=== PATIENT | female | born 1985 | race African-American/Black ===

== ENCOUNTER 2023-03-24 20:32 | Emergency (ER) | payer SELFPAY ==
[2023-03-24 20:34] VITALS: BP 160/108
[2023-03-24 21:22] VITALS: BMI 40.9
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
[2023-03-24] MEDS: TYLENOL 1000 MG PO (23:02)
[2023-03-24 23:20] VITALS: BP 136/96
== END 2023-03-24 23:29 | disposition home or self-care (01) ==
LOC: EMR 20:32
PROVIDERS: EMERGENCY PHYSICIAN Emergency Medicine; FAMILY PHYSICIAN Nurse Practitioner Family
DX: M54.50 Low back pain, unspecified (principal); V43.52XA Car driver injured in collision with other type car in traffic accident, initial encounter; I10 Essential (primary) hypertension; O26.899 Other specified pregnancy related conditions, unspecified trimester; Z3A.00 Weeks of gestation of pregnancy not specified
CPT/HCPCS: 99282

== ENCOUNTER → 2023-08-20 11:08 | Outpatient (REF) | payer OTHER, SELFPAY ==
[2023-08-20 15:51] LABS: Mumps Virus IgG Positive; Rubeola (Measles) IgG Positive; Varicella Zoster IgG (VZV) Positive
[2023-08-20 19:10] LABS: Hepatitis B Surface Antibody Positive
[2023-08-20 20:23] LABS: Rubella Positive
[2023-08-22 19:40] LABS: Quantiferon Mitogen minus NIL 9.97 IU/mL; Quantiferon NIL 0.03 IU/mL; Quantiferon Plus TB2 minus NIL -0.01 IU/mL (<=0.34); Quantiferon TB Gold Plus Negative (Negative)
== END ==
LOC: OHS 11:08
PROVIDERS: ATTENDING PHYSICIAN Nurse Practitioner Family
DX: Z23 Encounter for immunization (principal)
CPT/HCPCS: 36415; 86480; 86706; 86735; 86762; 86765; 86787

== ENCOUNTER 2023-10-19 02:27 | Emergency (ER) | payer OTHER, SELFPAY ==
[2023-10-19 02:48] VITALS: BMI 40.0
[2023-10-19 02:49] VITALS: BP 131/82
[2023-10-19] MEDS: ADENOCARD 6 MG IV (02:52)
[2023-10-19] MEDS: NSS 1000 IV (02:53)
[2023-10-19 02:55] LABS: % Basophils 0.5 % (0-2); % Immature Granulocytes 0.5 % (0-0.5); % Lymphocytes 43.7 % (20.5-51.1); % Neutrophils 48.3 % (42.2-75.2); Absolute Basophils 0.1 10^3/uL (0-0.2); Absolute Eosinophils 0.2 10^3/uL (0-0.7); Absolute Immature Granulocytes 0.1 10^3/uL (0-0.05); Absolute Lymphocytes 4.4 10^3/uL (1.2-3.4); Absolute Monocytes 0.5 10^3/uL (0.1-0.6); Absolute Neutrophils 4.9 10^3/uL (1.4-6.5); Hematocrit 34.1 % (37.0-47.0); Mean Corp Hgb Conc. 35.2 g/dL (33.0-37.0); Mean Corpuscular Hgb 28.6 pg (27.0-31.0); Mean Corpuscular Volume 81.2 fL (81.0-99.0); Mean Platelet Volume 9.3 fL (7.4-10.4); Nucleated Red Blood Cells % 0 %; Platelet Count 248 10^3/uL (130-400); Red Cell Dist. Width 13.2 % (11.5-14.5); White Blood Cell Count 10.2 10^3/uL (4.8-10.8)
[2023-10-19 03:07] LABS: ALT (SGPT) 17 U/L (0-35); AST (SGOT) 23 U/L (14-36); Albumin 3.7 g/dl (3.5-5.0); Alkaline Phosphatase 102 U/L (38-126); Blood Urea Nitrogen 8 mg/dl (7-17); Calcium 9.1 mg/dl (8.4-10.2); Carbon Dioxide 19 mmol/L (22-30); Chloride 106 mmol/L (98-107); Estimated Creatinine Clearance > 125 ml/min; Glucose 177 mg/dl (70-99); Potassium 3.5 mmol/L (3.5-5.1); Sodium 139 mmol/L (135-145); Total Bilirubin 0.4 mg/dl (0.2-1.3); Total Protein 6.6 g/dl (6.3-8.2); eGFR > 60.00
[2023-10-19 03:15] VITALS: BP 138/98
[2023-10-19 03:37] LABS: TSH Reflex To Free T4 0.37 uIU/ml (0.47-4.68)
[2023-10-19 04:00] VITALS: BP 126/89
--- NOTE | 2023-10-19 04:04 | ED.GENMED ---
History of Present Illness
General
Chief Complaint: Heart Rate Problem
Source: patient
Exam Limitations: none
Time Seen by Provider: 10/19/23 02:45
Nursing documentation reviewed up to this point in time: agreed with
History of Present Illness
History of Present Illness:
This is a 38-year-old female 8 para 3-0-4-3 currently 14 weeks with EDC of April 12, 2024. She presents with her after waking around 1:15 AM with a sensation that her heart was pounding and beating rapidly. She admits
to feeling slightly lightheaded but no chest pain, no shortness of breath. No history of similar episodes in the past.
Current medications include vitamins, vitamin D and low-dose aspirin, methimazole 5 mg once daily.
She has prior history of hypertension as well as prior history of peripartum cardiomyopathy, had been following with associate store leader at [place] with reported previous echocardiogram showing normalization of EF. She states last echocardiogram in last
visit with associate store leader was perhaps 1 year ago.
No prior history of arrhythmia nor coronary artery disease.
She has history of hyperthyroidism, has been maintained on methimazole 5 mg once daily for at least the past year. Follows with endocrinology.
She states thus far has been uneventful. She follows with artificial plastic eye maker at [place].
Past History
Past History
ED Past Medical History: HTN, Hyperthyroidism (Maintained on methimazole 5 mg once daily.), Other (Peripartum cardiomyopathy, CHF, EF has since normalized 2021. Follows with cardiology at [place].) and Other (Seasonal allergies)
ED Past Surgical History: (X 1)
Social History
Tobacco: Non-smoker
Alcohol: Occasional
Drug: None
Personal:
Living: with family
Employment: Employed
Family History
Family History: Other (Noncontributory)
Phy Exam
Physical Exam
Physical Exam:
GENERAL: 38-year-old woman appears her stated age, awake and alert, mildly anxious, easily communicative. No respiratory distress.
EYE: pupils equal and reactive. anicteric
NECK: Supple, nontender, no meningismus, no significant adenopathy. No JVD.
ENT: posterior pharynx is clear, oral mucosa is moist. No rhinorrhea.
CARDIAC: Tachycardic at 200, no murmur.
LUNGS: Clear breath sounds bilaterally, no acute respiratory distress, no wheezes/rales/rhonchi
ABDOMEN: Soft, nondistended, without focal tenderness, normoactive BS.
NEUROLOGICAL: Alert and oriented x3, no focal neuro deficits.
SKIN: Warm and dry, normal color, skin intact. No rash.
MUSCULOSKELETAL: No C/C/E. peripheral pulses are full and equal b/l. Well-perfused. No palpable tenderness.
PSYCH: Mildly anxious. Cooperative.
Course
Orders/Labs/Results
Orders:
Orders
10/19/23 02:32
ECG [Electrocardiogram (*1)] Urgent
Reason for Study: Tachycardia
10/19/23 02:33
EKG- Treatment ONCE
10/19/23 02:37
Adenosine [Adenocard] 18 mg .ROUTE .STK-MED ONE
10/19/23 02:44
Complete Blood Count/With Diff Urgent
Comprehensive Metabolic Panel Urgent
Free T4 Urgent
TSH Reflex To Free T4 Urgent
Comment: ADD ON
10/19/23 02:45
Add On- LAB Urgent
Tests Added?: TSH w free T-4
10/19/23 02:51
Adenosine [Adenocard] 6 mg IV NOW STA
10/19/23 02:53
0.9% Sodium Chloride 1000 ml [Nss] 1,000 ml IV BOLUS
Abnormal Lab Results
10/19/23
02:44
Hct 34.1 L %
(37.0-47.0)
Abs Immat Gran (auto) 0.1 H 10^3/uL
(0-0.05)
Absolute Lymphs (auto) 4.4 H 10^3/uL
(1.2-3.4)
Carbon Dioxide 19 L mmol/L
(22-30)
Glucose 177 H mg/dl
(70-99)
TSH (Reflex) 0.37 L uIU/ml
(0.47-4.68)
Free T4 0.56 L ng/dl
(0.78-2.19)
10/19/23 02:44
10/19/23 02:44
Vital Signs
Initial and Last Documented VS:
Initial Vital Signs
Temp Pulse Resp Pulse Ox
98 F 218 24 100
10/19/23 02:30 10/19/23 02:30 10/19/23 02:30 10/19/23 02:30
Last Documented Vital Signs
Temp Pulse Resp BP Pulse Ox
98 F 106 24 138/96 99
10/19/23 02:30 10/19/23 05:02 10/19/23 02:30 10/19/23 05:00 10/19/23 05:00
MDM/Problems Addressed
Differential Diagnosis Includes:
Patient presents with palpitations found to be in SVT with heart rate of 208. Hemodynamically stable.
IV access promptly initiated and she is given 6 mg of IV adenosine push with successful conversion to sinus tachycardia. Patient tolerated adenosine well.
She remains hemodynamically stable.
Repeat EKG shows sinus tachycardia at 130, no acute ST-T wave abnormalities.
Prior history of peripartum cardiomyopathy/CHF but nothing to suggest CHF on exam, lungs are clear to auscultation, without respiratory distress.
She has history of hyperthyroidism, maintained on methimazole 5 mg daily. Exacerbation of hyperthyroidism could certainly be cause for SVT.
She denies chest pain, no leg pain or swelling, no shortness of breath, thromboembolism as cause is unlikely.
Will check labs including TSH.
IV fluids infusing and will continue ekg monitor tech.
*Pulse Oximetry
Patient hypoxic: no
*EKG
Interpreted by ED Provider?: Yes
Interpretation: abnormal
Comparison EKG: changes noted (SVT is new compared to previous)
Rate: tachycardiac
Rhythm: SVT
[place]: normal axis
Interval: normal interval
QRS Pattern: normal QRS
Ischemia: non-specific ST changes
*Software Consultant Interpretation
Rate: tachycardiac
Interpretation: abnormal
Rhythm: SVT
*Critical Care Note
Total Time (30-74mins, 75-104mins- exclusive of procedures): 15
comment:
Critical care statement: A total of 15 minutes of critical care time was provided for this patient. This includes management of unstable vital signs, evaluation of the patient at bedside, reviewing the patient's pertinent medical records, discussion
with consultants, review of old EKGs and review of pertinent medical records. This time with separate from time utilized to perform the aforementioned documented procedures
Update Note
Update Note:
10/19/2023 0422 AM
Monitor shows mild sinus tachycardia at 100-110.
Patient remains comfortable, asymptomatic. Resting comfortably. She continues to deny chest pain or shortness of breath.
Normotensive.
Labs thus far are unremarkable save for mildly elevated glucose of 177 and mildly suppressed TSH of 0.37. Free T4 is pending.
10/19/2023 0510 AM
Patient remains comfortable. Normal sinus rhythm to mild sinus tachycardia. Offers no complaints.
Free T4 was mildly low at 0.56. Patient following with oil tanker captain regarding her hyperthyroidism. Recommend prompt follow-up with her associate store leader at [place] as well.
ED Attending Note
-
Portions of this chart may have been created with voice recognition software.� Occasional wrong word or��sound alike� substitutions may have occurred due to the inherent limitations of voice recognition software.
Discharge Plan
Departure
Patient Disposition: Home (Routine Discharge)
Date of Disposition: 10/19/23
Time of Disposition: 05:07
Patient with high blood pressure during this ER visit?: No
Condition: Good
Discharge Problem:
SVT (supraventricular tachycardia)
Instructions: Supraventricular tachycardia (SVT)
Referrals:
Demian Yang MD [Family Provider] -
Activity Restrictions/Additional Instructions:
Stay well-hydrated on a daily basis.
Follow-up with your associate store leader at [place] for further evaluation/recheck.
Interventions
Interventions:
*Risk Screen - Suicide Last Done: 10/19/23 02:47
*General Assessment Last Done: 10/19/23 02:47
*Neglect/Abuse Screening Last Done: 10/19/23 02:47
*ED COVID-19 Vaccine History Last Done: 10/19/23 02:47
ED- Cardiac Assessment Last Done: 10/19/23 02:40
ED- Pulmonary Assessment Last Done: 10/19/23 02:40
Discharge Date and Time
Print Language: [place]
[2023-10-19 04:51] LABS: Free T4 0.56 ng/dl (0.78-2.19)
[2023-10-19 05:00] VITALS: BP 138/96
== END 2023-10-19 05:15 | disposition home or self-care (01) ==
LOC: EMR 02:27
PROVIDERS: EMERGENCY PHYSICIAN Emergency Medicine; FAMILY PHYSICIAN Family Medicine
DX: O99.412 Diseases of the circulatory system complicating pregnancy, second trimester (principal); I47.10 Supraventricular tachycardia, unspecified; R42 Dizziness and giddiness; O26.892 Other specified pregnancy related conditions, second trimester; Z3A.14 14 weeks gestation of pregnancy; O10.912 Unspecified pre-existing hypertension complicating pregnancy, second trimester; O99.282 Endocrine, nutritional and metabolic diseases complicating pregnancy, second trimester; O90.3 Peripartum cardiomyopathy; I11.0 Hypertensive heart disease with heart failure; I50.9 Heart failure, unspecified; Z79.899 Other long term (current) drug therapy; Z91.013 Allergy to seafood
CPT/HCPCS: 99285; 96374; 80053; 84439; 84443; 85025; 93005; J0153

== ENCOUNTER 2024-05-18 21:49 | Emergency (ER) | payer OTHER, SELFPAY ==
[2024-05-18 21:51] VITALS: BP 156/96
--- NOTE | 2024-05-18 22:14 | ED.GENMED ---
History of Present Illness
General
Chief Complaint: Blood Pressure Problem
Source: patient
Exam Limitations: none
Time Seen by Provider: 05/18/24 22:01
Nursing documentation reviewed up to this point in time: agreed with
History of Present Illness
History of Present Illness:
38-year-old female with history as noted presents to the ER for evaluation of hypertension. Of note patient is 6 weeks �delivered 04/01/2024 via at [facility]. This was complicated by gestational diabetes and
previous pregnancies complicated by preeclampsia. Patient has history of hypertension and cardiomyopathy and follows with cardiology at [place] Dr. Kiley Mcclain. She had been on metoprolol 50 mg in the morning and 100 mg in the evening throughout
her most recent . She says in the 6 weeks since her delivery she has had poorly controlled hypertension with blood pressures occasionally peaking as high as 170s over 100s. She saw her side splitter on and was prescribed labetalol
100 mg twice daily in addition to her metoprolol. She has been taking these medications but blood pressure still running high today she said her blood pressure was in the 150s over 90s consistently which prompted her to come to the ER. She says
she has had some occasional headaches and some continued soreness around her incision but otherwise feeling generally well. She denies any loss of vision, speech issues, focal weakness or numbness, chest pains, breathing troubles. Denies other
complaints.
Past History
Past History
ED Past Medical History: HTN, Hyperthyroidism (Maintained on methimazole 5 mg once daily.), Other (Peripartum cardiomyopathy, CHF, EF has since normalized 2021. Follows with cardiology at [place].) and Other (Seasonal allergies)
ED Past Surgical History: (X 1)
Social History
Tobacco: Non-smoker
Alcohol: Occasional
Drug: None
Personal:
Living: with family
Employment: Employed
Family History
Family History: Other (Noncontributory)
Review of Systems
Review of Systems
All Other Systems: ROS reviewed and negative except as documented in HPI and ROS
Constitutional: Denies fever
Respiratory: Denies trouble breathing
Cardiac: Denies chest pain
ABD/GI: Denies abdominal pain or nausea
: Denies flank pain
Musculoskeletal: Denies neck pain or back pain
Neurological: Reports headache; Denies dizzy, weakness or numbness
Phy Exam
Physical Exam
Physical Exam:
General: Awake, alert, oriented x3; no acute distress
Head: Normocephalic, atraumatic
Eyes: Conjunctiva normal, EOMI, pupils equal round and reactive to light bilaterally
Throat: Airway intact, handling secretions
Neck: Trachea midline, supple without meningismus
Lungs: Clear to auscultation bilaterally, no wheezing, rales, rhonchi
Heart: Regular rate and rhythm, no murmurs, gallops, or rubs
Abd: Soft, non distended, nontender
Neuro: Cranial nerves grossly intact, speech fluid, no gross motor or sensory deficits
Extremities: No edema in extremities, equal pulses in all extremities
Scores
Heart Failure Risk
Heart Failure Risk Score: Not Applicable
Heart Score for Chest Pain Patients
STEMI patient?: Not applicable
Withdrawal Assessment of Alcohol
Withdrawal Assessment Completed?: Not applicable
Course
Orders/Labs/Results
Orders:
Orders
05/18/24 22:03
Electrocardiogram (*1) Urgent
Reason for Study: Hypertension, Benign
EKG- Treatment ONCE
05/18/24 22:31
Complete Blood Count/With Diff Urgent
Comprehensive Metabolic Panel Urgent
05/18/24 23:44
Urinalysis Reflex To Culture Urgent
Date Specimen was Collected: 05/18/24
Time Specimen was Collected: 23:26
Urine Microscopic Reflex Cult Urgent
Urine Protein/Creat Ratio (Random) [Protein/Creat Ratio (Random)] Urgent
Date Specimen was Collected: 05/18/24
Time Specimen was Collected:
Urine Culture Urgent
JENNIFER Source: U
Specimen Description:
Date Specimen was Collected: 05/18/24
Time Specimen was Collected:
Abnormal Lab Results
05/18/24 05/18/24
22:31 23:44
RBC 4.02 L 10^6/uL
(4.20-5.40)
Hgb 11.0 L g/dL
(12.0-16.0)
Hct 34.0 L %
(37.0-47.0)
MCHC 32.4 L g/dL
(33.0-37.0)
Glucose 128 H mg/dl
(70-99)
Ur Occult Blood Reflex 3+ A
(Negative)
Leukocyte Esterase Rfl 1+ A
(Negative)
Urine RBC 3-6 A /HPF
(0-2)
Urine Bacteria (Reflex) Moderate A
(Negative)
Urine Albumin (Reflex) 1+ A
(Neg - Trace)
05/18/24 22:31
05/18/24 22:31
Vital Signs
Initial and Last Documented VS:
Initial Vital Signs
Temp Pulse Resp BP Pulse Ox
36.9 C 69 18 156/96 100
05/18/24 21:51 05/18/24 21:51 05/18/24 21:51 05/18/24 21:51 05/18/24 21:51
Last Documented Vital Signs
Temp Pulse Resp BP Pulse Ox
36.9 C 77 18 138/93 100
05/18/24 21:51 05/18/24 23:00 05/18/24 23:00 05/18/24 23:00 05/18/24 21:51
MDM/Problems Addressed
Differential Diagnosis Includes:
Hypertension, preeclampsia
MDM/Problems Addressed:
38-year-old female with history as documented presents for hypertension�approximately 6 weeks and has had poorly controlled blood pressure since delivery. She does have a history of chronic hypertension has been on metoprolol, labetalol
added a few days ago but not improving her blood pressures.. Blood pressure is 156/96. Rest of vitals normal. Physical exam benign. Plan to check labs including a CBC and a CMP. Check an EKG. Check urinalysis for signs of proteinuria.
Reassess after the above.
Labs reviewed: CBC shows marginal anemia hemoglobin of 11 unlikely of acute clinical significance in the setting of recent /. Platelets are normal. CMP shows normal renal function, normal electrolytes, normal LFTs. Glucose
marginally elevated at 128. Awaiting results of urinalysis. Her blood pressure has normalized now 126/82. Continue to monitor. Will discuss results with URBAN RENEWAL MANAGER.
Urinalysis showed no protein, protein creatinine ratio 0. Discussed with REPAIRER FINISHED METAL�with normal creatinine and LFTs, protein creatinine ratio 0 and no critical range blood pressures here (greater than 160/110), no indication for admission for
preeclampsia suspect more likely related to chronic hypertension. Blood pressure remains normal here on clinical reassessment. Patient stable for discharge at this point we will have her follow-up with her normal doctor and URBAN RENEWAL MANAGER. Will prescribe as
needed hydralazine low-dose for severe hypertension while pending follow-up. Patient comfortable with this plan. Spoke about return precautions all questions answered.
Chronic conditions affecting care:
Hypertension
*Pulse Oximetry
Patient hypoxic: no
*EKG
Interpreted by ED Provider?: Yes
Heart Rate: 73
Rate: normal
Rhythm: sinus
[place]: normal axis
Interval: normal interval
QRS Pattern: left vent hypertrophy
Ischemia: other (Nonspecific T wave abnormality)
*Critical Care Note
Total Time (30-74mins, 75-104mins- exclusive of procedures): Not Applicable
Data Reviewed
Review of Other/Old Records Reveals: Labs and Records
Source: patient and records
ED Attending Note
-
Portions of this chart may have been created with voice recognition software.� Occasional wrong word or��sound alike� substitutions may have occurred due to the inherent limitations of voice recognition software.
Discharge Plan
Departure
Patient Disposition: Home (Routine Discharge)
Date of Disposition: 05/19/24
Time of Disposition: 00:24
Patient with high blood pressure during this ER visit?: Yes
Discharge Problem:
Hypertension
Instructions: High Blood Pressure (DC)
Prescriptions:
New
hydralazine 10 mg tablet
10 mg PO BID PRN (Reason: hypertension) Qty: 20 0RF
Referrals:
Marlen Rosenthal CRNP [Family Provider] - Follow up in 5-7 days
Activity Restrictions/Additional Instructions:
Thank you for visiting the Emergency Department at [facility].
1. Please schedule a follow up appointment as directed. Call first thing tomorrow morning to make an appointment.
2. If indicated, please take your medications as instructed and indicated on discharge paperwork.
3. If any of your symptoms do not improve, or persist, or become more severe within 6-12 hours, please return to the emergency department for further care.
4. Please return to the emergency department if you develop a headache, neck pain/stiffness, fever greater than 100.4F, chest pain, shortness of breath, persistent nausea, vomiting, slurred speech, difficulty walking, numbness/tingling, weakness,
signs of infection or any other symptoms that are worrisome to you.
Please call [phone] if you have any questions.
Interventions
Interventions:
*Risk Screen - Suicide Last Done: 05/18/24 21:51
*General Assessment Last Done: 05/18/24 21:51
*Neglect/Abuse Screening Last Done: 05/18/24 21:51
*ED- Fall Risk Assessment Last Done: 05/18/24 21:51
*ED COVID-19 Vaccine History Last Done: 05/18/24 21:51
ED- Cardiac Assessment Last Done: 05/18/24 22:51
ED- Neurological Assessment Last Done: 05/18/24 22:51
ED- Pulmonary Assessment Last Done: 05/18/24 22:51
Discharge Date and Time
Print Language: POLISH
[2024-05-18 22:41] VITALS: BP 126/82
[2024-05-18 22:42] LABS: % Basophils 0.4 % (0-2); % Eosinophils 3.2 % (0-6); % Immature Granulocytes 0.4 % (0-0.5); % Lymphocytes 41.4 % (20.5-51.1); % Neutrophils 47.6 % (42.2-75.2); Absolute Eosinophils 0.2 10^3/uL (0-0.7); Absolute Lymphocytes 2.3 10^3/uL (1.2-3.4); Absolute Monocytes 0.4 10^3/uL (0.1-0.6); Absolute Neutrophils 2.6 10^3/uL (1.4-6.5); Mean Corp Hgb Conc. 32.4 g/dL (33.0-37.0); Mean Corpuscular Hgb 27.4 pg (27.0-31.0); Mean Corpuscular Volume 84.6 fL (81.0-99.0); Mean Platelet Volume 9.4 fL (7.4-10.4); Nucleated Red Blood Cells % 0 %; Platelet Count 209 10^3/uL (130-400); Red Blood Cell Count 4.02 10^6/uL (4.20-5.40); Red Cell Dist. Width 14.4 % (11.5-14.5); White Blood Cell Count 5.6 10^3/uL (4.8-10.8)
[2024-05-18 22:53] LABS: ALT (SGPT) 26 U/L (0-35); AST (SGOT) 20 U/L (14-36); Albumin 3.7 g/dl (3.5-5.0); Alkaline Phosphatase 98 U/L (38-126); Blood Urea Nitrogen 11 mg/dl (7-17); Calcium 8.9 mg/dl (8.4-10.2); Carbon Dioxide 28 mmol/L (22-30); Chloride 106 mmol/L (98-107); Glucose 128 mg/dl (70-99); Potassium 3.8 mmol/L (3.5-5.1); Sodium 140 mmol/L (135-145); Total Bilirubin 0.4 mg/dl (0.2-1.3); Total Protein 6.5 g/dl (6.3-8.2); eGFR > 60.00
[2024-05-18 23:00] VITALS: BP 138/93
[2024-05-18 23:51] LABS: Urine Albumin 1+ (Neg - Trace); Urine Bilirubin Negative (Negative); Urine Character Clear (Clear); Urine Color Yellow; Urine Glucose Negative (Negative); Urine Ketone Negative (Negative); Urine Leukocyte 1+ (Negative); Urine Nitrite Negative (Negative); Urine Occult Blood 3+ (Negative); Urine Specific Gravity 1.025 (<1.030); Urine Urobilinogen Negative (Neg - 1+)
[2024-05-19] LABS: Urine Bacteria Moderate (Negative)
[2024-05-19 00:18] LABS: Urine Protein < 5 mg/dl
[2024-05-19 00:29] VITALS: BP 149/98
== END 2024-05-19 00:34 | disposition home or self-care (01) ==
LOC: EMR 21:49
PROVIDERS: EMERGENCY PHYSICIAN Emergency Medicine; FAMILY PHYSICIAN Nurse Practitioner Family
DX: I11.0 Hypertensive heart disease with heart failure (principal); I50.9 Heart failure, unspecified; I42.9 Cardiomyopathy, unspecified; Z79.899 Other long term (current) drug therapy
CPT/HCPCS: 99284; 80053; 81003; 81015; 82570; 84156; 85025; 87086; 93005

== ENCOUNTER 2024-07-07 12:59 | Emergency (ER) | payer OTHER, SELFPAY ==
[2024-07-07 13:11] VITALS: BP 120/78
--- NOTE | 2024-07-07 15:02 | ED.MUSCINJ ---
HPI-Injury
General
Chief Complaint: Musculo-Skeletal Complaint
Source: patient
Exam Limitations: none
Time Seen by Provider: 07/07/24 14:50
History of Present Illness-Injury
Initial Injury comments:
39-year-old female [id number] presents complaining of persistent right shoulder and neck pain after falling onto her shoulder 2 weeks ago while playing with her kids. The pain is along the anterior lateral aspect of the shoulder. She did
not hit her head. She is not anticoagulated. She has been using Tylenol for pain. No other complaints at this time
Past History
Past History
ED Past Medical History: HTN, Hyperthyroidism (Maintained on methimazole 5 mg once daily.), Other (Peripartum cardiomyopathy, CHF, EF has since normalized 2021. Follows with cardiology at [place].) and Other (Seasonal allergies)
ED Past Surgical History: (X 1)
Social History
Tobacco: Non-smoker
Alcohol: Occasional
Drug: None
Personal:
Living: with family
Employment: Employed
Family History
Family History: Other (Noncontributory)
Phy Exam
Physical Exam
Physical Exam:
General: Well-appearing female no acute respiratory distress
HEENT: Normocephalic atraumatic
Musculoskeletal exam: Right shoulder tender anterior laterally without deformity good active range of motion good passive range of motion. There is increased pain with rotator cuff strength testing. Cervical spine is slightly tender to the right
paraspinous area
Vascular: 2+ radial pulse right wrist
Injury Course
Orders/Labs/Results
Orders:
Orders
07/07/24 15:01
CR Cervical Spine 2 or 3 Vw Urgent
Comment:
Reason For Exam: fall, pain
CR Shoulder, Trauma - Right Urgent
Comment:
Reason For Exam: fall, pain
MDM/Problems Addressed
Differential Diagnosis Includes:
Persistent right shoulder pain after a fall 2 weeks ago. Consider strain versus fracture versus dislocation versus contusion x-rays pending
*Critical Care Note
Total Time (30-74mins, 75-104mins- exclusive of procedures): Not Applicable
Update Note
Update Note:
X-rays reviewed and are negative for acute finding. Suspect underlying shoulder strain. Recommended continued Motrin or Tylenol with orthopedic follow-up. Stable for discharge
ED Attending Note
-
Portions of this chart may have been created with voice recognition software.� Occasional wrong word or��sound alike� substitutions may have occurred due to the inherent limitations of voice recognition software.
Discharge Plan
Departure
Patient Disposition: Home (Routine Discharge)
Date of Disposition: 07/07/24
Time of Disposition: 18:59
Patient with high blood pressure during this ER visit?: No
Discharge Problem:
Right shoulder strain
Prescriptions:
No Action
hydralazine 10 mg tablet
10 mg PO BID PRN (Reason: hypertension) Qty: 20 0RF
Referrals:
Marlen Rosenthal CRNP [Family Provider] -
Activity Restrictions/Additional Instructions:
Continue with ibuprofen or Tylenol for pain. Follow-up with orthopedics. Return if needed
Interventions
Interventions:
*Risk Screen - Suicide Last Done: 07/07/24 13:11
*General Assessment Last Done: 07/07/24 13:11
*Neglect/Abuse Screening Last Done: 07/07/24 13:11
*ED- Fall Risk Assessment Last Done: 07/07/24 13:11
*ED COVID-19 Vaccine History Last Done: 07/07/24 13:11
ED-Musculoskeletal Assessment Last Done: 07/07/24 15:04
Discharge Date and Time
Print Language: PORTUGUESE
[2024-07-07 15:04] VITALS: BMI 39.1
[2024-07-07 19:02] VITALS: BP 123/90
--- NOTE | 2024-07-07 19:20 | EDRN ---
Reviewed discharge instructions with patient. Verbalized understanding. Ambulated with steady gait to the lobby.
[2024-07-07 19:21] VITALS: BP 123/92
== END 2024-07-07 19:22 | disposition home or self-care (01) ==
LOC: EMR 12:59
PROVIDERS: EMERGENCY PHYSICIAN Emergency Medicine; FAMILY PHYSICIAN Nurse Practitioner Family
DX: S46.911A Strain of unspecified muscle, fascia and tendon at shoulder and upper arm level, right arm, initial encounter (principal); M54.2 Cervicalgia; W19.XXXA Unspecified fall, initial encounter; I11.0 Hypertensive heart disease with heart failure; I50.9 Heart failure, unspecified
CPT/HCPCS: 99284; 72040; 73030

== ENCOUNTER 2024-08-19 06:57 | Emergency (ER) | payer OTHER, SELFPAY ==
[2024-08-19 07:00] VITALS: BP 140/105
[2024-08-19 07:09] VITALS: BMI 37.6
[2024-08-19 07:19] VITALS: BP 127/94
[2024-08-19 07:40] LABS: Urine Albumin Negative (Neg - Trace); Urine Bilirubin Negative (Negative); Urine Character Slightly Cloudy (Clear); Urine Color Yellow; Urine Glucose Negative (Negative); Urine Ketone Negative (Negative); Urine Leukocyte 3+ (Negative); Urine Nitrite Negative (Negative); Urine Occult Blood Negative (Negative); Urine Urobilinogen Negative (Neg - 1+)
[2024-08-19 07:44] LABS: HCG, Urine Qualitative Screen Negative
--- NOTE | 2024-08-19 07:54 | ED.GENMED ---
History of Present Illness
General
Chief Complaint: Flank Pain
Source: patient
Exam Limitations: none
Time Seen by Provider: 08/19/24 07:03
Nursing documentation reviewed up to this point in time: agreed with
History of Present Illness
History of Present Illness:
The patient is a 39-year-old female with a past medical history of high blood pressure who reports 3 days of nausea vomiting and diarrhea. Patient reports no fever. Patient reports that she has had no diarrhea or vomiting since yesterday. She
denies sick contacts. She denies body aches and sore throat. Patient reports she is now able to drink fluids without any difficulty. Patient reports she is here because she woke up out of her sleep with right flank pain. Patient reports that it
was initially severe and now feels better. Patient denies any current chills. Patient denies a history of kidney stones. Patient denies any radiation of pain into the abdomen or down the leg. Patient denies any dizziness and chest pain. Patient
reports that earlier she felt palpitations which she now denies currently.
Past History
Past History
ED Past Medical History: HTN, Hyperthyroidism (Maintained on methimazole 5 mg once daily.), Other (Peripartum cardiomyopathy, CHF, EF has since normalized 2021. Follows with cardiology at [place].) and Other (Seasonal allergies)
ED Past Surgical History: (X 1)
Social History
Tobacco: Non-smoker
Alcohol: Occasional
Drug: None
Personal: Other
Living: with family
Employment: Employed
Family History
Family History: Other (Noncontributory)
Review of Systems
Review of Systems
Allergies reviewed?: Yes
All Other Systems: ROS reviewed and negative except as documented in HPI and ROS
Constitutional: Reports no symptoms
EENT: Reports no symptoms
Respiratory: Reports no symptoms
Cardiac: Reports palpitations (Recent but nothing currently)
ABD/GI: Reports nausea, vomiting and diarrhea
: Reports flank pain
Musculoskeletal: Reports no symptoms
Skin: Reports no symptoms
Neurological: Reports no symptoms
Endocrine: Reports no symptoms
Hematologic/Lymphatic: Reports no symptoms
Psychiatric: Reports no symptoms
Phy Exam
Physical Exam
Physical Exam:
Physical Exam
General: no apparent distress, not acutely ill. Well uncomfortable appearing
Neck: supple. no meningeal signs. normal posterior pharynx
Heart: s1/s2 regular rate and rhythm, no murmur. equal radial and femoral pulses bilaterally.
Lungs: no acute respiratory distress. clear bilaterally
Abdomen: normal bowel sounds. not tender. Mild right CVA tenderness.
Neuro: alert and oriented. no focal neurological deficits
Skin: no rash
Psychiatric: well kept. interactive and cooperative
Extremities: no edema. no calf tenderness. negative homans. good distal pulses
Course
Orders/Labs/Results
Orders:
Orders
08/19/24 07:16
Test Result ONCE
US Kidneys [US Renal Only W/O Bladder] Urgent
Comment:
Reason For Exam: R flank pain
08/19/24 07:30
Beta Hcg Urine Qualitative Screen [HCG, Urine Qualitative Screen] Urgent
Date Specimen was Collected: 08/19/24
Time Specimen was Collected: 07:26
Urinalysis Reflex To Culture Urgent
Date Specimen was Collected: 08/19/24
Time Specimen was Collected: 07:26
Urine Microscopic Reflex Cult Urgent
Urine Culture Urgent
JENNIFER Source: U
Specimen Description:
Date Specimen was Collected: 08/19/24
Time Specimen was Collected: 07:26
08/19/24 07:50
Electrocardiogram (*1) Urgent
Reason for Study: Palpitations
EKG- Treatment ONCE
08/19/24 08:[address] Non Medication Order As Directed
Physician Order: body temperature please
08/19/24 08:26
CT Abd/pel Without Iv Or Oral Urgent
Comment:
Reason For Exam: r flank pain
08/19/24 11:15
Oxycodone/Acetaminophen [Percocet 5/325] 1 tablet PO NOW STA
08/19/24 11:20
Ketorolac [Toradol] 10 mg PO NOW STA
Abnormal Lab Results
08/19/24
07:30
Leukocyte Esterase Rfl 3+ A
(Negative)
Vital Signs
Initial and Last Documented VS:
Initial Vital Signs
Pulse Resp BP Pulse Ox
86 18 140/105 99
08/19/24 07:00 08/19/24 07:00 08/19/24 07:00 08/19/24 07:00
Last Documented Vital Signs
Temp Pulse Resp BP Pulse Ox
97.8 F 86 18 136/87 97
08/19/24 08:47 08/19/24 07:00 08/19/24 07:00 08/19/24 09:00 08/19/24 09:00
MDM/Problems Addressed
Differential Diagnosis Includes:
Musculoskeletal back pain, pyelonephritis, renal colic
MDM/Problems Addressed:
Patient presents with acute right flank pain and resolved nausea vomiting and diarrhea
Chronic conditions affecting care: Cardiomyopathy
Acute Exacerbation and/or Progression of Chronic Illness:
Patient's lungs are clear, she is breathing comfortably, and there is no active sign of CHF
*Radiology
Radiology exam reviewed: radiology read reviewed
*Pulse Oximetry
SaO2: 99
Oxygen Mode of Delivery: Room air
Patient hypoxic: no
Comment: Patient is 99% on room air
*EKG
Interpreted by ED Provider?: Yes
Interpretation: normal
Comparison EKG: no changes
Rate: normal
Rhythm: sinus
Byron: normal axis
Interval: normal interval
QRS Pattern: normal QRS
Ischemia: no ischemia
*Critical Care Note
Total Time (30-74mins, 75-104mins- exclusive of procedures): Not Applicable
Patient Management
Social determinants of health affecting care: Living situation and Strong social support
Escalation/DeEscalation of care consider admission/obs:
Patient remains extremely well and comfortable appearing. She is afebrile without any nausea and vomiting. Pain well-controlled with Toradol. CT shows possible right renal colic but not definite. However, symptoms seem consistent with a
right-sided ureteral stone. Patient instructed to return immediately with any nausea, vomiting, fevers or chills
ED Attending Note
-
Portions of this chart may have been created with voice recognition software.� Occasional wrong word or��sound alike� substitutions may have occurred due to the inherent limitations of voice recognition software.
Discharge Plan
Departure
Patient Disposition: Home (Routine Discharge)
Date of Disposition: 08/19/24
Time of Disposition: 12:57
Patient with high blood pressure during this ER visit?: Yes
Condition: Good
Covid-19: Not Applicable
Discharge Problem:
Renal colic on right side
Instructions: Renal Colic (DC)
Prescriptions:
New
ketorolac 10 mg tablet
10 mg PO Q8H PRN (Reason: Pain) Qty: 7 0RF
sulfamethoxazole-trimethoprim [Bactrim DS] 800-160 mg tablet
1 tab PO BID Qty: 13 0RF
No Action
hydralazine 10 mg tablet
10 mg PO BID PRN (Reason: hypertension) Qty: 20 0RF
Referrals:
Thuan Ivy MD [Active, Urology]
Referral Note: Call to schedule an appointment to see in 7 to 10 days
Marlen Rosenthal CRNP [Family Provider]
Activity Restrictions/Additional Instructions:
Call urology today to schedule an appointment to see in 7 to 10 days. Please return with any fevers, chills or vomiting
Do not combine the Toradol with any other NSAIDs such as Motrin, Aleve, ibuprofen or Advil.
Interventions
Interventions:
*Risk Screen - Suicide Last Done: 08/19/24 07:00
*General Assessment Last Done: 08/19/24 07:00
*Neglect/Abuse Screening Last Done: 08/19/24 07:00
*ED- Fall Risk Assessment Last Done: 08/19/24 07:09
*ED COVID-19 Vaccine History Last Done: 08/19/24 07:09
VD-Rvuqxy-Mtngtfdpss Assessment Last Done: 08/19/24 07:09
ED-Female Genitourinary Assessment Last Done: 08/19/24 07:09
Discharge Date and Time
Print Language: YORUBA
[2024-08-19 07:58] LABS: Urine Squamous Cell >30 /LPF (Few)
[2024-08-19 08:00] LABS: Urine Amorphous Seen; Urine Red Blood Cell 0-2 /HPF (0-2)
[2024-08-19 09:00] VITALS: BP 136/87
[2024-08-19] MEDS: TORADOL 10 MG PO (11:27)
[2024-08-19 13:12] VITALS: BP 120/89
== END 2024-08-19 14:08 | disposition home or self-care (01) ==
LOC: EMR 06:57
PROVIDERS: EMERGENCY PHYSICIAN Emergency Medicine; FAMILY PHYSICIAN Nurse Practitioner Family
DX: N23 Unspecified renal colic (principal)
CPT/HCPCS: 99284; 74176; 76775; 81003; 81015; 81025; 87086; 93005

== ENCOUNTER 2024-09-01 04:04 | Emergency (ER) | payer OTHER, SELFPAY ==
[2024-09-01 04:06] VITALS: BP 146/104
[2024-09-01 04:24] VITALS: BMI 36.5
[2024-09-01 04:43] LABS: HCG, Serum Qualitative Screen Negative
[2024-09-01 04:54] LABS: Hematocrit 35.3 % (37.0-47.0); Hemoglobin 11.9 g/dL (12.0-16.0); Mean Corp Hgb Conc. 33.7 g/dL (33.0-37.0); Mean Corpuscular Volume 82.9 fL (81.0-99.0); Nucleated Red Blood Cells % 0 %; Platelet Count 260 10^3/uL (130-400); Red Cell Dist. Width 13.5 % (11.5-14.5)
[2024-09-01] MEDS: NSS 1000 IV (04:58)
[2024-09-01] MEDS: ZOFRAN 4 MG IV (05:00)
[2024-09-01] MEDS: DILAUDID 1 MG IV (05:00)
[2024-09-01 05:02] LABS: Urine Character Clear (Clear)
[2024-09-01 05:03] LABS: ALT (SGPT) 21 U/L (0-35); AST (SGOT) 22 U/L (14-36); Albumin 4.4 g/dl (3.5-5.0); Alkaline Phosphatase 85 U/L (38-126); Blood Urea Nitrogen 18 mg/dl (7-17); Calcium 9.7 mg/dl (8.4-10.2); Carbon Dioxide 25 mmol/L (22-30); Chloride 106 mmol/L (98-107); Estimated Creatinine Clearance > 125 ml/min; Glucose 176 mg/dl (70-99); Lipase 219 U/L (23-300); Potassium 3.7 mmol/L (3.5-5.1); Sodium 141 mmol/L (135-145); Total Protein 7.4 g/dl (6.3-8.2); eGFR > 60.00
[2024-09-01 05:09] LABS: Urine Squamous Cell >30 /LPF (Few)
[2024-09-01 05:10] LABS: Urine Red Blood Cell None Seen /HPF (0-2); Urine White Cell 0-2 /HPF (0-5)
--- NOTE | 2024-09-01 05:13 | ED.GENMED ---
History of Present Illness
General
Chief Complaint: Flank Pain
Source: patient
Exam Limitations: none
Time Seen by Provider: 09/01/24 04:21
Nursing documentation reviewed up to this point in time: agreed with
History of Present Illness
History of Present Illness:
see mdm
Past History
Past History
ED Past Medical History: HTN, Hyperthyroidism (Maintained on methimazole 5 mg once daily.), Other (Peripartum cardiomyopathy, CHF, EF has since normalized 2021. Follows with cardiology at [place].) and Other (Seasonal allergies)
ED Past Surgical History: (X 1)
Social History
Tobacco: Non-smoker
Alcohol: Occasional
Drug: None
Personal: Other
Living: with family
Employment: Employed
Family History
Family History: Other (Noncontributory)
Review of Systems
Review of Systems
Allergies reviewed?: Yes
All Other Systems: Not applicable
Phy Exam
Physical Exam
Physical Exam:
GENERAL: Alert , in no apparent distress
EYE: pupils equal and reactive
NECK: Supple
ENT: o/p clr, mmm.
CARDIAC: Regular rate and rhythm .
LUNGS: Clear breath sounds bilaterally, no acute respiratory distress, no wheezes/rales/rhonchi
ABDOMEN: Soft, moderate right upper quadrant tenderness, positive Boyle sign no r/g, no cvat, normal bowel sounds
NEUROLOGICAL: Alert and oriented, no focal neuro deficits
SKIN: Warm and dry, skin intact.
MUSCULOSKELETAL: No edema, well perfused.
PSYCH: Normal and appropriate interaction.
Course
Orders/Labs/Results
Orders:
Orders
09/01/24 04:15
IV Insert/Care/Rem.- Treatment PRN
Test Result ONCE
09/01/24 04:21
Complete Blood Count/With Diff Urgent
Comprehensive Metabolic Panel Urgent
HCG, Serum Qualitative Screen Urgent
Comment: Notify provider if positive test present
Lipase Urgent
Urinalysis Reflex To Culture Urgent
Date Specimen was Collected: 09/01/24
Time Specimen was Collected: 04:15
Urine Microscopic Reflex Cult Urgent
09/01/24 04:50
US Abdomen Complete/Upper Urgent
Comment:
Reason For Exam: RUQ pain, R back pain; vomiting
09/01/24 04:51
0.9% Sodium Chloride 1000 ml [Nss] 1,000 ml IV BOLUS
HYDROmorphone [Dilaudid] 1 mg IV NOW STA
Ondansetron Injectable [Zofran] 4 mg IV NOW STA
Abnormal Lab Results
09/01/24
04:21
Hgb 11.9 L g/dL
(12.0-16.0)
Hct 35.3 L %
(37.0-47.0)
BUN 18 H mg/dl
(7-17)
Glucose 176 H mg/dl
(70-99)
Urine Bacteria (Reflex) Few A
(Negative)
Urine Albumin (Reflex) 2+ A
(Neg - Trace)
09/01/24 04:21
09/01/24 04:21
Vital Signs
Initial and Last Documented VS:
Initial Vital Signs
Pulse Resp BP Pulse Ox
98 28 146/104 100
09/01/24 04:06 09/01/24 04:06 09/01/24 04:06 09/01/24 04:06
Last Documented Vital Signs
Temp Pulse Resp BP Pulse Ox
36.4 C 70 18 120/84 99
09/01/24 06:25 09/01/24 06:25 09/01/24 06:25 09/01/24 06:25 09/01/24 06:25
MDM/Problems Addressed
Differential Diagnosis Includes:
see MDM
MDM/Problems Addressed:
Note:
CHIEF COMPLAINT(S)
Right lower quadrant abdominal pain with nausea and vomiting.
HISTORY OF PRESENT ILLNESS
The patient is a 39-year-old female with a history of hypertension and cardiomyopathy secondary to . She presented with worsening right upper quadrant abdominal pain, which was initially noted nearly two weeks ago when she was evaluated for
a possible kidney stone. Although a kidney stone was suspected, it was not definitively visualized on the prior computed tomography (CT) scan. The patients pain had gotten better briefly and then the past few days has been worse. She also reported
nausea since three days ago and has been experiencing vomiting. The patient denied fever but mentioned difficulty with urination, describing needing to 'push it out,' though it was previously unremarkable. The patient also noted pain when breathing
and cough.
CHRONIC MEDICAL CONDITIONS SIGNIFICANTLY AFFECTING CARE
- Hypertension
- Cardiomyopathy secondary to
SOCIAL DETERMINANTS AFFECTING HEALTH
The patient mentioned a history of opioid addiction.
MEDICATIONS
- Blood pressure medication for hypertension
- Cardiac medications
- Vitamin D supplement
REVIEW OF SYSTEMS
- Gastrointestinal: Abdominal pain, nausea, vomiting, difficulty urinating.
- Respiratory: Cough, pain with breathing.
- Neurological: Headaches reported.
PHYSICAL EXAM
Nursing notes reviewed and vital signs reviewed.Tender RUQ moderate
PROBLEM LIST
Acute:
- Abdominal pain
- Nausea and vomiting
- Possible kidney stone
Chronic:
- Hypertension
- Cardiomyopathy secondary to
PLAN
- Ultrasound to further evaluate for potential gallstones or kidney stones.
- Administration of pain medication and antiemetics.
- Intravenous fluids to maintain hydration.
- Avoid oral intake pending further evaluation.
- Monitor and assess for any signs that may indicate the need for surgical intervention.
DIFFERENTIAL DIAGNOSIS
The Differential Diagnosis includes, in no particular order and is not limited to:
- Renal colic from kidney stone
- Cholecystitis
- Appendicitis
- Pelvic inflammatory disease
- Gastroenteritis
- Urinary tract infection
- Gynecological issues such as ovarian cyst rupture
- Diverticulitis
- Pneumonia with referred pain
- Musculoskeletal strain
Patient reassessed
She feels much better after pain meds and nausea medicine. Her labs were reviewed. There is no significant elevation of her white count or LFTs, her UA had no blood. Her tenderness was over her right upper quadrant suggestive of cholecystitis or
cholelithiasis. She does have cholelithiasis without evidence of cholecystitis. Given her pain is improved we will discharge home. I did speak with Dr. Chery ER attending whether we should repeat the CT scan which she did not think was clinically
relevant. Patient was given surgery for follow-up consultation as an outpatient
*Pulse Oximetry
SaO2: 100
Patient hypoxic: no (99)
*Critical Care Note
Total Time (30-74mins, 75-104mins- exclusive of procedures): Not Applicable
ED Attending Note
-
Portions of this chart may have been created with voice recognition software.� Occasional wrong word or��sound alike� substitutions may have occurred due to the inherent limitations of voice recognition software.
Discharge Plan
Departure
Patient Disposition: Home (Routine Discharge)
Date of Disposition: 09/01/24
Time of Disposition: 06:23
Patient with high blood pressure during this ER visit?: No
Condition: Fair
Covid-19: Not Applicable
Discharge Problem:
Cholelithiasis
Instructions: Gallstones - Discharge instructions
Prescriptions:
New
ondansetron 4 mg tablet,disintegrating
4 mg PO Q8H PRN (Reason: nausea and vomiting) 2 Days Qty: 5 0RF
No Action
hydralazine 10 mg tablet
10 mg PO BID PRN (Reason: hypertension) Qty: 20 0RF
ketorolac 10 mg tablet
10 mg PO Q8H PRN (Reason: Pain) Qty: 7 0RF
sulfamethoxazole-trimethoprim [Bactrim DS] 800-160 mg tablet
1 tab PO BID Qty: 13 0RF
Referrals:
Chetan Garcia MD [Active, Surgical] - Follow up in 2-3 days
UNKNOWN - PT DOES,NOT KNOW [Family Provider]
Activity Restrictions/Additional Instructions:
YOUR ULTRASOUND SHOWS GALLSONE IN YOUR GALLBLADDER
THIS IS PROBABLY CAUSING YOUR PAIN AND VOMITING
TRY TO AVOID FATTY FOODS
BLAND DIET TODAY
ZOFRAN EVERY 8 HOURS FOR VOMITING
TYLENOL OR MOTRIN FO RPAIN
CALL SURGERY FOR AN APPOINTMENT FOR CONSULTATION
RETURN FOR: FEVER, VOMITING REPEATEDLY, WORSE PAIN/INABILITY TO EAT OR ANY CONCERNS.
Interventions
Interventions:
*Risk Screen - Suicide Last Done: 09/01/24 06:31
*General Assessment Last Done: 09/01/24 06:31
*Neglect/Abuse Screening Last Done: 09/01/24 06:31
*ED- Fall Risk Assessment Last Done: 09/01/24 06:31
*ED COVID-19 Vaccine History Last Done: 09/01/24 06:31
*Nursing Disposition Last Done: 09/01/24 06:31
TR-Xezmmn-Urrkbtezbt Assessment Last Done: 09/01/24 04:25
ED-Female Genitourinary Assessment Last Done: 09/01/24 04:25
Discharge Date and Time
Discharge Date/Time: 09/01/24 06:32
Print Language: [place]
[2024-09-01 05:31] VITALS: BP 117/76
[2024-09-01 06:25] VITALS: BP 120/84
== END 2024-09-01 06:32 | disposition home or self-care (01) ==
LOC: EMR 04:04
PROVIDERS: EMERGENCY PHYSICIAN Emergency Medicine
DX: K80.20 Calculus of gallbladder without cholecystitis without obstruction (principal); I11.0 Hypertensive heart disease with heart failure; I50.9 Heart failure, unspecified
CPT/HCPCS: 99284; 96374; 96375; 96361; 76700; 80053; 81003; 81015; 83690; 84703; 85025

== ENCOUNTER 2024-11-03 06:19 | Inpatient (IN) | payer OTHER, SELFPAY ==
[2024-11-03] VITALS (17 sets, daily range): BP systolic 104–160; BP diastolic 66–108; BMI 33.9; BMI 34.9
--- NOTE | 2024-11-03 02:14 | ED.GENMED ---
History of Present Illness
<Nickolas Renee Jr., PA-C - Last Filed: 11/03/24 05:34>
General
Chief Complaint: Abdominal Pain
Source: patient
Exam Limitations: none
Time Seen by Provider: 11/03/24 01:57
Nursing documentation reviewed up to this point in time: agreed with
History of Present Illness
History of Present Illness:
39-year-old female presenting to the emergency department today for concerns of right upper quadrant abdominal pain over the past few hours rating to the back associated nausea and vomiting. Diagnosed with gallstones a few months ago as well.
Past History
<Nickolas Renee Jr., PA-C - Last Filed: 11/03/24 05:34>
Past History
ED Past Medical History: HTN, Hyperthyroidism (Maintained on methimazole 5 mg once daily.), Other (Peripartum cardiomyopathy, CHF, EF has since normalized 2021. Follows with cardiology at [place].) and Other (Seasonal allergies)
ED Past Surgical History: (X 1)
Social History
Tobacco: Non-smoker
Alcohol: Occasional
Drug: None
Personal: Other
Living: with family
Employment: Employed
Family History
Family History: Other (Noncontributory)
Review of Systems
<Nickolas Renee Jr., PA-C - Last Filed: 11/03/24 05:34>
Review of Systems
Allergies reviewed?: Yes
All Other Systems: ROS reviewed and negative except as documented in HPI and ROS
Phy Exam
<Nickolas Rneee Jr., PA-C - Last Filed: 11/03/24 05:34>
Physical Exam
Physical Exam:
GENERAL: Alert , in no apparent distress
EYE: pupils equal and reactive
NECK: Supple, no significant adenopathy.
ENT: o/p clr, mmm.
CARDIAC: Regular rate and rhythm .
LUNGS: Clear breath sounds bilaterally, no acute respiratory distress, no wheezes/rales/rhonchi
ABDOMEN: Vertebral quadrant abdominal pain as well as positive Boyle's as well as additional epigastric abdominal pain no lower abdominal pain.
NEUROLOGICAL: Alert and oriented, no focal neuro deficits
SKIN: Warm and dry, skin intact.
MUSCULOSKELETAL: No edema, well perfused.
PSYCH: Normal and appropriate interaction.
Course
<Nickolas Renee Jr., PA-Lona - Last Filed: 11/03/24 05:34>
Orders/Labs/Results
Orders:
Orders
11/03/24 02:05
0.9% Sodium Chloride 1000 ml [Nss] 1,000 ml IV BOLUS
Ketorolac [Toradol] 15 mg IV NOW STA
Ondansetron Injectable [Zofran] 4 mg IV NOW STA
Test Result ONCE
US Abdomen Complete/Upper Urgent
Comment:
Reason For Exam: RUQ pain
11/03/24 02:23
Complete Blood Count/With Diff Urgent
Comprehensive Metabolic Panel Urgent
HCG, Serum Qualitative Screen Urgent
Lipase Urgent
11/03/24 02:25
Urinalysis Reflex To Culture Urgent
Date Specimen was Collected: 11/03/24
Time Specimen was Collected: 02:22
Urine Microscopic Reflex Cult Urgent
Urine Culture Urgent
JENNIFER Source: U
Specimen Description:
Date Specimen was Collected: 11/03/24
Time Specimen was Collected: 02:22
11/03/24 02:59
HYDROmorphone [Dilaudid] 0.5 mg .ROUTE .STK-MED ONE
11/03/24 03:01
HYDROmorphone [Dilaudid] 0.5 mg IV NOW STA
Abnormal Lab Results
11/03/24 11/03/24
02:23 02:25
Hgb 11.8 L g/dL
(12.0-16.0)
Hct 36.2 L %
(37.0-47.0)
MCHC 32.6 L g/dL
(33.0-37.0)
Absolute Neuts (auto) 6.8 H 10^3/uL
(1.4-6.5)
Neutrophils % 78.0 H %
(42.2-75.2)
Lymphocytes % 16.5 L %
(20.5-51.1)
Chloride 108 H mmol/L
(98-107)
Glucose 148 H mg/dl
(70-99)
Leukocyte Esterase Rfl 1+ A
(Negative)
Urine Bacteria (Reflex) Few A
(Negative)
Urine Albumin (Reflex) 2+ A
(Neg - Trace)
11/03/24 02:23
11/03/24 02:23
Vital Signs
Initial and Last Documented VS:
Initial Vital Signs
Temp Pulse Resp BP Pulse Ox
98.4 F 84 26 158/104 100
11/03/24 01:54 11/03/24 01:54 11/03/24 01:54 11/03/24 01:54 11/03/24 01:54
Last Documented Vital Signs
Temp Pulse Resp BP Pulse Ox
98.2 F 56 16 120/75 100
11/03/24 05:00 11/03/24 03:30 11/03/24 03:30 11/03/24 04:54 11/03/24 04:57
<Barbara Chery, DO - Last Filed: 11/03/24 04:40>
Orders/Labs/Results
Orders:
Orders
11/03/24 02:05
0.9% Sodium Chloride 1000 ml [Nss] 1,000 ml IV BOLUS
Ketorolac [Toradol] 15 mg IV NOW STA
Ondansetron Injectable [Zofran] 4 mg IV NOW STA
Test Result ONCE
US Abdomen Complete/Upper Urgent
Comment:
Reason For Exam: RUQ pain
11/03/24 02:23
Complete Blood Count/With Diff Urgent
Comprehensive Metabolic Panel Urgent
HCG, Serum Qualitative Screen Urgent
Lipase Urgent
11/03/24 02:25
Urinalysis Reflex To Culture Urgent
Date Specimen was Collected: 11/03/24
Time Specimen was Collected: 02:22
Urine Microscopic Reflex Cult Urgent
Urine Culture Urgent
JENNIFER Source: U
Specimen Description:
Date Specimen was Collected: 11/03/24
Time Specimen was Collected: 02:22
11/03/24 02:59
HYDROmorphone [Dilaudid] 0.5 mg .ROUTE .STK-MED ONE
11/03/24 03:01
HYDROmorphone [Dilaudid] 0.5 mg IV NOW STA
Abnormal Lab Results
11/03/24 11/03/24
02:23 02:25
Hgb 11.8 L g/dL
(12.0-16.0)
Hct 36.2 L %
(37.0-47.0)
MCHC 32.6 L g/dL
(33.0-37.0)
Absolute Neuts (auto) 6.8 H 10^3/uL
(1.4-6.5)
Neutrophils % 78.0 H %
(42.2-75.2)
Lymphocytes % 16.5 L %
(20.5-51.1)
Chloride 108 H mmol/L
(98-107)
Glucose 148 H mg/dl
(70-99)
Leukocyte Esterase Rfl 1+ A
(Negative)
Urine Bacteria (Reflex) Few A
(Negative)
Urine Albumin (Reflex) 2+ A
(Neg - Trace)
11/03/24 02:23
11/03/24 02:23
Vital Signs
Initial and Last Documented VS:
Initial Vital Signs
Temp Pulse Resp BP Pulse Ox
98.4 F 84 26 158/104 100
11/03/24 01:54 11/03/24 01:54 11/03/24 01:54 11/03/24 01:54 11/03/24 01:54
Last Documented Vital Signs
Temp Pulse Resp BP Pulse Ox
98.2 F 56 16 120/75 100
11/03/24 05:00 11/03/24 03:30 11/03/24 03:30 11/03/24 04:54 11/03/24 04:57
<Nickolas Renee Jr., PA-C - Last Filed: 11/03/24 05:34>
MDM/Problems Addressed
MDM/Problems Addressed:
39-year-old female presenting with concerns of right upper quadrant abdominal pain worsening over the past 2 hours with associated nausea and vomiting. Does not history of gallstones. Blood pressure elevated on arrival otherwise vital signs are
normal. Afebrile. CT scan showing gallbladder distention and wall thickening. Case discussed with general surgery that recommends HIDA scan for further assessment. Patient does still have some degree of ongoing symptoms despite IV Dilaudid and
Toradol.
<Nickolas Renee Jr., PA-C - Last Filed: 11/03/24 05:34>
*Pulse Oximetry
SaO2: 100
Oxygen Mode of Delivery: Room air
Patient hypoxic: no (98)
*Critical Care Note
Total Time (30-74mins, 75-104mins- exclusive of procedures): Not Applicable
ED Attending Note
<REBECCA Jorgensen Jr. Last Filed: 11/03/24 05:34>
-
Portions of this chart may have been created with voice recognition software.� Occasional wrong word or��sound alike� substitutions may have occurred due to the inherent limitations of voice recognition software.
<Barbara Chery, DO - Last Filed: 11/03/24 04:40>
ED Attending Note
Patient seen and examined by attending physician: Yes
I performed a history and physical exam of patient and discussed management with resident, I reviewed resident's note and agree with documented findings and plan of care.: Yes
ED Attending Note:
39-year-old woman with history of -induced hypertension, hyperthyroidism. Prior history of peripartum cardiomyopathy in 2021�EF has since normalized. Most recent / March 2024. Currently takes no medications.
She presents with recurrent severe right upper quadrant pain. Similar sporadic episodes since July of this year and evaluated in this ED August 19 and then again September 01. Initial ultrasound and CT in July were unremarkable. Ultrasound September 01
showed a 3.5 mm gallstone but no evidence of cholecystitis. Pain-free after pain medication and patient has since followed up with a general surgeon at [place]. She states an outpatient ultrasound just a week or 2 ago was unremarkable.
She returns with severe recurrent right upper quadrant pain, admits to feeling restless, nauseous and vomiting. No fever. Significant pain initially, minimal improvement after Toradol, greater improvement after an IV dose of Dilaudid.
Physical exam remarkable for moderate tenderness to right upper quadrant, no rebound or guarding.
Labs again are unremarkable but ultrasound shows a distended gallbladder with minimally thickened wall with suspected wall edema and questionable trace Augustine cholecystic fluid. Concern for acalculous cholecystitis.
Due to severe, recurrent right upper quadrant pain, ultrasound findings suspicious for acalculous cholecystitis will consult general surgery.
Discharge Plan
Departure
Patient Disposition: Admit
Date of Disposition: 11/03/24
Time of Disposition: 05:33
Admit to: Med/Surg
Admit to doctor: Kam
Presentation/result/management discussed w/ accepting MD/DO: Hospitalist
Patient with high blood pressure during this ER visit?: No
Condition: Good
Covid-19: Not Applicable
Discharge Problem:
Abdominal pain, RUQ
Prescriptions:
No Action
No Current Medications
0
Referrals:
Marlen Rosenthal CRNP [Family Provider]
Interventions
Interventions:
*Risk Screen - Suicide Last Done: 11/03/24 01:54
*General Assessment Last Done: 11/03/24 02:04
*Neglect/Abuse Screening Last Done: 11/03/24 01:54
*ED- Fall Risk Assessment Last Done: 11/03/24 02:04
*ED COVID-19 Vaccine History Last Done: 11/03/24 02:04
QU-Sjfhno-Zndumkctid Assessment Last Done: 11/03/24 04:57
Discharge Date and Time
Print Language: ESTONIAN
[2024-11-03] MEDS: ZOFRAN 4 MG IV (02:17)
[2024-11-03] MEDS: NSS 1000 IV (02:17)
[2024-11-03] MEDS: TORADOL 15 MG IV (02:20)
[2024-11-03 02:40] LABS: Hematocrit 36.2 % (37.0-47.0); Hemoglobin 11.8 g/dL (12.0-16.0); Mean Corp Hgb Conc. 32.6 g/dL (33.0-37.0); Mean Corpuscular Volume 85.0 fL (81.0-99.0); Nucleated Red Blood Cells % 0 %; Platelet Count 200 10^3/uL (130-400); Red Cell Dist. Width 13.3 % (11.5-14.5)
[2024-11-03 02:45] LABS: Urine Character Slightly Cloudy (Clear)
[2024-11-03 02:58] LABS: HCG, Serum Qualitative Screen Negative
[2024-11-03] MEDS: DILAUDID 0.5 MG IV ×3 (03:01→22:55)
[2024-11-03 03:06] LABS: ALT (SGPT) 25 U/L (0-35); AST (SGOT) 35 U/L (14-36); Albumin 3.9 g/dl (3.5-5.0); Alkaline Phosphatase 71 U/L (38-126); Blood Urea Nitrogen 11 mg/dl (7-17); Calcium 8.5 mg/dl (8.4-10.2); Carbon Dioxide 27 mmol/L (22-30); Chloride 108 mmol/L (98-107); Glucose 148 mg/dl (70-99); Lipase 187 U/L (23-300); Potassium 3.6 mmol/L (3.5-5.1); Sodium 141 mmol/L (135-145); Total Protein 6.7 g/dl (6.3-8.2); eGFR > 60.00
[2024-11-03 03:11] LABS: Urine Red Blood Cell None Seen /HPF (0-2); Urine Squamous Cell >30 /LPF (Few)
--- NOTE | 2024-11-03 05:49 | HPS.HSE ---
Family Physician
-
Family Physician: NI Lazo
Chief Complaint
-
Abd Pain
History of Present Illness
Patient is a 39y F with PMH significant for cardiomyopathy, obesity and hyperthyroidism who presents to ED complaining of abdominal pain. Patient states that she was woken from sleep this evening around 10:30 with epigastric / RUQ
abdominal pain. Pain radiated to the back. Pos N/V x several episodes of non-bloody emesis. No fevers / chills. No diarrhea.
Patient reports several prior episodes of similar symptoms. She was evaluated for possible cholecystectomy recently as an outpatient and opted against it as she was told her gallbladder 'looked healthy'.
Medical History
Past Medical History
Past Medical History: Reports Other
Additional Past Medical History:
Cardiomyopathy (recovered)
Hyperthyroidism
Obesity
Past Surgical History: Reports Other
Additional Past Surgical History:
x 2
Social History
Tobacco: Non-smoker
Alcohol: Occasional
Drug: None
Family History
Family History: Other (DM, Pancreatic Cancer)
Allergies / Home Medications
Allergies reflects when Allergies were last updated in [employer].
Home Medications with original date entered in [employer]
Allergy/Medication List:
Allergies
Allergy/AdvReac Type Severity Reaction Status Date / Time
shellfish derived Allergy Unknown Verified 11/03/24 01:56
Home Medications
No Meds [No Current Medications] 11/03/24
Review of Systems
-
History Source: Patient
A 12 point ROS was completed and negative except as noted: Yes
Constitutional: Denies Fever or Chills
Respiratory: Denies Cough or Trouble Breathing
Cardiac: Denies Chest Pain or Palpitations
Abdomen/GI: Reports Abdominal Pain, Nausea and Vomiting; Denies Diarrhea, Bloody Stools or Black Stools
: Denies Dysuria or Frequency
Musculoskeletal: Denies Joint Pain or Edema
Neurological: Denies Dizzy or Headache
Psych: Denies Depression or Anxiety
Physical Exam
Vital Signs
Vital Signs
Temp Pulse Resp BP Pulse Ox
98.2 F 56 16 120/75 100
11/03/24 05:00 11/03/24 03:30 11/03/24 03:30 11/03/24 04:54 11/03/24 04:57
Physical Exam
General: Other (39y F in no acute distress at present.)
HEENT: Moist mucous membranes and PERRLA
Respiratory: Clear; No Wheezes, Rales or Rhonchi
Cardiac: S1/S2 and Regular Rhythm; No Murmur
GI: Soft, Non Distended, Normal Bowel Sounds and Other (Pos RUQ tenderness. No rebound / guarding.)
Musculoskeletal: No Clubbing, No Cyanosis and No Edema
Neuro: AO x 3
Laboratory Results
-
11/03/24 02:23
11/03/24 02:23
Laboratory Results
Total Bilirubin 0.4 mg/dl (0.2-1.3) 11/03/24 02:23
AST 35 U/L (14-36) 11/03/24 02:23
ALT 25 U/L (0-35) 11/03/24 02:23
Alkaline Phosphatase 71 U/L (38-126) 11/03/24 02:23
Lipase 187 U/L (23-300) 11/03/24 02:23
Impression/Plan
-
A/P: Patient is a 39y F with PMH significant for cardiomyopathy and hyperthyroidism who presents to ED complaining of abdominal pain.
Abdominal Pain
- Admit for further evaluation and treatment.
- US done in the ED shows no stones / sludge. Pos top normal gallbladder wall (3-4mm) and trace pericholecystic fluid.
- Afebrile and not toxic appearing. LFTs / labs are completely unremarkable.
- Clinical history suggestive of biliary colic given recurrent episodes.
- HIDA scan in AM.
- Surgery evaluation for additional recommendations.
- Monitor off of abx for now and follow for fever, increased pain, etc.
History of Cardiomyopathy
- Recovered. Not on any chronic medications.
History of Hyperthyroidism
- Not on any chronic medications.
- Check TFTs.
DVT Prophylaxis: SCDs
Code Status: Full
[2024-11-03] MEDS: LR 1000 IV (08:42)
[2024-11-03] MEDS: PROTONIX IV 40 MG IV (11:40)
[2024-11-03] MEDS: NSS (PRESERVATIVE FREE) 10 ML IV (11:40)
--- NOTE | 2024-11-03 12:56 | W.PN.HOSP.TC ---
Today's Communication/Plan
-
Assessment / Plan
Assessment / Plan
General: No Apparent Distress, uncomfortable
HEENT: NormoCephalic, Moist mucous membranes, Atraumatic
Respiratory: Clear and Non Labored Respirations
Cardiac: S1/S2 and Regular Rhythm; No Rub or Gallop
GI: Soft, mild to moderate upper abdominal TTP, Non Distended and Normal Bowel Sounds
Musculoskeletal: No Edema, no deformity
Skin: Warm and dry
: NO Hurley
Neuro: Awake, Alert, Nonfocal/grossly intact
Psych: Calm and Intact Judgment/Insight
Ms. Garcia is a 39-year-old female with a medical history of cardiomyopathy (recovered), hyperthyroidism, and obesity who presented with right upper quadrant abdominal pain. She had several episodes of nonbloody emesis. She remains
afebrile and normotensive. Her labs are generally unremarkable. Abdominal ultrasound shows a distended gallbladder with no stones, early acute cholecystitis not excluded. HIDA scan is pending. She has been admitted for further evaluation and
management.
Right upper quadrant pain:
- Concern for early acute cholecystitis
- HIDA scan pending
- To be evaluated by general surgery
- Supportive care with antiemetics and pain control as needed
- IV PPI
- LR at 100 cc/h
History of hyperthyroidism:
- TSH within normal limits
- Not on any chronic thyroid medications
DVT prophylaxis: SCDs
CODE STATUS: Full code
Total time spent on today's encounter was 55 minutes
Anticipated Discharge: 24 - 48 hours
Subjective/Interval History
-
Date of Service: November 03, 2024
Patient was seen and examined at bedside. Continues to have persistent abdominal pain. Labs and vital signs remain relatively unremarkable. She is awaiting HIDA scan.
Objective Data
-
Labs:
Laboratory Results
11/03/24
02:23
WBC 8.8
Hgb 11.8 L
Hct 36.2 L
Plt Count 200
Sodium 141
Potassium 3.6
Chloride 108 H
Carbon Dioxide 27
BUN 11
Creatinine 0.7
Glucose 148 H
Calcium 8.5
Total Bilirubin 0.4
AST 35
ALT 25
Alkaline Phosphatase 71
Vital Signs:
Vital Signs
Temp Pulse Resp BP Pulse Ox
97.9 F 66 16 121/76 100
11/03/24 08:23 11/03/24 08:23 11/03/24 08:23 11/03/24 08:23 11/03/24 08:23
Review of Systems
-
History Source: Patient
All other systems: Reviewed and negative
Abdomen/GI: Reports Abdominal Pain
Physical Exam
-
General: Pain
--- NOTE | 2024-11-03 17:06 | CON.GS ---
Consultation
-
Date/Time Consultation Performed: 11/03/2024 11 AM
Performing Provider: Roxie
Reason for Consultation: Right upper quadrant pain, possible cholecystitis
Medical History
-
Chief Complaint: Right upper quadrant and epigastric abdominal pain
History of Present Illness:
Patient is a 39-year-old female Who developed the acute onset of right upper quadrant epigastric pain last evening at about 10 PM awaking her from sleep. This is the 3rd or 4th episode of pain such as this. She had an ultrasound back in August
which identified a gallstone. She was referred to an outside surgeon who evaluated her down at [facility]. An ultrasound was again repeated and again confirmed a stone. Overnight ultrasound however was negative for this stone.
Pain persists as of this a.m. with continued nausea.
Past Medical History
Past Medical History: Hyperthyroidism and Other (Obesity with BMI 34.9, cardiomyopathy which has since recovered)
Past Surgical History:
Social History
Tobacco: Non-Smoker
Alcohol: Occasional
Family History
Family History: Reviewed & Noncontributory
Allergies / Home Medications
Allergy/AdvReac Type Severity Reaction Status Date / Time
shellfish derived Allergy Unknown Verified 11/03/24 01:56
�Medication �Instructions �Recorded �Confirmed �Type
No Meds [No Current Medications] 11/03/24 11/03/24 History
Review of Systems
-
History Source: Patient
All other systems: Negative unless noted
A 10 point review of systems was completed, and was negative except as per HPI.
Physical Exam
Vital Signs
Temp Pulse Resp BP Pulse Ox
97.9 F 66 16 121/76 100
11/03/24 08:23 11/03/24 08:23 11/03/24 08:23 11/03/24 08:23 11/03/24 08:23
11/02/24 11/03/24 11/04/24
06:59 06:59 06:59
Actual Weight 92.533 kg 95.028 kg
Body Mass Index (BMI) 34.9
Lab Results
11/03/24 02:23
11/03/24 02:23
WBC 8.8 10^3/uL (4.8-10.8) 11/03/24 02:23
Hgb 11.8 g/dL (12.0-16.0) L 11/03/24 02:23
Hct 36.2 % (37.0-47.0) L 11/03/24 02:23
Plt Count 200 10^3/uL (130-400) 11/03/24 02:23
Abs Immat Gran (auto) 0.0 10^3/uL (0-0.05) 11/03/24 02:23
Neutrophils % 78.0 % (42.2-75.2) H 11/03/24 02:23
Physical Exam
General: Well Developed, Well Nourished, No Apparent Distress and Other (But uncomfortable appearing)
HEENT: Normocephalic, Anicteric and Moist Mucous Membranes
Respiratory: Non Labored Respirations
Cardiac: Regular Rhythm
GI: Soft, Non Distended and Tender (Tenderness to palpation greatest in the epigastrium and right upper quadrant)
Skin: Warm
Neuro: AO x 3
Psych: Calm
Data Reviewed
-
Radiology: Image Personally Visualized and interpreted
CT Scan: Image Personally Visualized and interpreted
Ultrasound: Image Personally Visualized and interpreted
Assessment / Plan
-
Assessment: 39-year-old female with recurrent episode of biliary colic like pain. Small stone seen on previous ultrasound back in August although not present on current ultrasound. Current ultrasound with some gallbladder distention and trace
pericholecystic fluid. No biliary ductal dilation.
HIDA scan essentially nondiagnostic
Advised patient that while her symptoms are suggestive of biliary colic it is not of 100% certainty that her symptoms are from gallstones. That being said she has undergone extensive radiographic imaging and testing over the past few months and I
therefore offered patient cholecystectomy for definitive evaluation of potential gallbladder disease which she advises is her preference to proceed with that as well.
Laparoscopic cholecystectomy with intraoperative cholangiogram was reviewed in detail including the operative technique, potential operative findings and the management, alternative treatment options, benefits and potential risks such as but not
limited to bleeding, infectious and related complications, iatrogenic injury to surrounding viscera, bile duct injury, bile leak and postcholecystectomy bowel changes. Any of the patient's concerns or questions were fully addressed and written
informed consent was obtained.
Plan: Patient is on the OR schedule for cholecystectomy today.
--- NOTE | 2024-11-03 17:12 | W.SUR.PREOP ---
Pre-Operative Surgical Note
-
I have examined this patient prior to the performance of the scheduled procedure.
The patient's condition is unchanged from the time of the current History and
Physical and the patient is able to undergo the scheduled procedure.
[2024-11-03] MEDS: STERILE WATER FOR INJECTION 10 ML IV (17:47)
[2024-11-03] MEDS: CEFOTAN 2000 MG IV (17:47)
--- NOTE | 2024-11-03 19:03 | W.IMMPOSTOP ---
Addendum entered and electronically signed by Davi Faustin MD 11/03/24 19:15:
#[id number]
Original Note:
Surgical Immed Post Op Note
-
Primary Surgeon: Davi Faustin MD
Assisting Surgeon: Diane Underwood
Pre-op Diagnosis: Acute biliary colic
Post-op Diagnosis: Acute cholecystitis
Procedure Performed: Laparoscopic cholecystectomy with intraoperative cholangiogram
Anesthesia Type: GETA +0.25% Marcaine
Specimen / Cultures: Gallbladder
Estimated Blood Loss: 6mL
Complications: None immediate
Operative Findings: Modestly distended gallbladder with significant edema within the wall of the gallbladder. Thick sludge like bile in the cystic duct. Intraoperative cholangiogram normal. No obstruction, no biliary ductal dilation or stricture.
Periportal edema noted as well. Liver unremarkable. No additional incidental findings.
Plan: Clear liquid and advance to low-fat diet as tolerated
Routine postoperative care
Updated patient's mother via phone call postoperatively
--- NOTE | 2024-11-03 20:30 | PTCARENOTE ---
Received patient from PACU at approx 2009. Patient AAA x 3. Reports mild pain in her throat. Provided patient with ice chips.
[2024-11-04 00:15] VITALS: BP 137/86
[2024-11-04 03:00] VITALS: BP 149/88
[2024-11-04] MEDS: DILAUDID 0.5 MG IV (03:42)
[2024-11-04] MEDS: LR 1000 IV (03:46)
[2024-11-04 07:09] VITALS: BP 135/88
[2024-11-04] MEDS: TORADOL 15 MG IV (07:58)
[2024-11-04] MEDS: PROTONIX IV 40 MG IV (07:59)
[2024-11-04] MEDS: NSS (PRESERVATIVE FREE) 10 ML IV (07:59)
[2024-11-04 08:54] LABS: Hematocrit 35.0 % (37.0-47.0); Hemoglobin 11.3 g/dL (12.0-16.0); Mean Corp Hgb Conc. 32.3 g/dL (33.0-37.0); Mean Corpuscular Volume 83.9 fL (81.0-99.0); Platelet Count 218 10^3/uL (130-400); Red Cell Dist. Width 13.2 % (11.5-14.5)
[2024-11-04 09:23] LABS: ALT (SGPT) 352 U/L (0-35); AST (SGOT) 300 U/L (14-36); Albumin 3.9 g/dl (3.5-5.0); Alkaline Phosphatase 143 U/L (38-126); Blood Urea Nitrogen 6 mg/dl (7-17); Calcium 8.5 mg/dl (8.4-10.2); Carbon Dioxide 28 mmol/L (22-30); Chloride 104 mmol/L (98-107); Estimated Creatinine Clearance > 125 ml/min; Glucose 116 mg/dl (70-99); Potassium 4.4 mmol/L (3.5-5.1); Sodium 137 mmol/L (135-145); Total Protein 6.6 g/dl (6.3-8.2); eGFR > 60.00
[2024-11-04] MEDS: ULTRAM 50 MG PO (10:41)
--- NOTE | 2024-11-04 10:41 | W.PN.HOSP.TC ---
Today's Communication/Plan
-
Assessment / Plan
Assessment / Plan
General: No Apparent Distress, uncomfortable
HEENT: NormoCephalic, Moist mucous membranes, Atraumatic
Respiratory: Clear and Non Labored Respirations
Cardiac: S1/S2 and Regular Rhythm; No Rub or Gallop
GI: Soft, laparoscopic port scars CDI, Non Distended and Normal Bowel Sounds
Musculoskeletal: No Edema, no deformity
Skin: Warm and dry
: NO Hurley
Neuro: Awake, Alert, Nonfocal/grossly intact
Psych: Calm and Intact Judgment/Insight
Ms. Garcia is a 39-year-old female with a medical history of cardiomyopathy (recovered), hyperthyroidism, and obesity who presented with right upper quadrant abdominal pain. She had several episodes of nonbloody emesis. She remains
afebrile and normotensive. Her labs are generally unremarkable. Abdominal ultrasound shows a distended gallbladder with no stones, early acute cholecystitis not excluded. HIDA scan is pending. She has been admitted for further evaluation and
management.
Acute cholecystitis:
- Status post lap sirena yesterday 11/03, tolerated procedure well
- Trialing a regular diet today
- Antibiotics discontinued
- Pain control as needed
- Anticipate discharge home later today with general surgery follow-up
History of hyperthyroidism:
- TSH within normal limits
- Not on any chronic thyroid medications
DVT prophylaxis: SCDs
CODE STATUS: Full code
Total time spent on today's encounter was 52 minutes
Anticipated Discharge: Within 24 hours
Subjective/Interval History
-
Date of Service: November 04, 2024
Patient was seen and examined at bedside this morning. Status post lap sirena yesterday. Tolerated procedure well.
Objective Data
-
Labs:
Laboratory Results
11/04/24
08:00
WBC 5.6
Hgb 11.3 L
Hct 35.0 L
Plt Count 218
Sodium 137
Potassium 4.4
Chloride 104
Carbon Dioxide 28
BUN 6 L
Creatinine 0.6
Glucose 116 H
Calcium 8.5
Total Bilirubin 0.9
AST 300 H
ALT 352 H
Alkaline Phosphatase 143 H
Vital Signs:
Vital Signs
Temp Pulse Resp BP Pulse Ox
98.3 F 70 16 135/88 99
11/04/24 07:09 11/04/24 07:09 11/04/24 07:09 11/04/24 07:09 11/04/24 07:09
I&O
11/03/24 11/04/24 11/05/24
06:59 06:59 06:59
Intake Total 1010 / 1010
Balance 1010 / 1010
Review of Systems
-
History Source: Patient
All other systems: Reviewed and negative
Abdomen/GI: Reports Abdominal Pain
Physical Exam
-
General: No Apparent Distress
--- NOTE | 2024-11-04 10:42 | W.PN.GS2 ---
Addendum entered and electronically signed by Oswaldo Winkler MD 11/04/24 10:49:
Patient seen and examined. Agree assessment plan as document below.
Recovering well overall. Continue pain with movement. No nausea or vomiting. No fevers.
Gen: NAD
Abd: soft, tender in epigastrium and RUQ, ND, no diffuse peritonitis, incisions c/d/i - no erythema, ecchymosis or drainage
Patient is a 39 yo F presenting with acute cholecystitis
POD #1 lap sirena with IOC
AFVSS
No leukocytosis
Expected transaminitis post operatively given manipulation of liver
Tolerating clears
Plan:
-- Regular diet
-- pain control: Tylenol, Toradol, Tramadol (reports issues with narcotics)
-- OOB/Ambulate
-- DC IVF
-- Dispo planning
Original Note:
Today's Communication / Plan
-
dispo planning
Assessment / Plan
-
39 yo female presenting with acute cholecystitis now POD #1 lap sirena with IOC
AFVSS
No leukocytosis
Expected transaminitis post operatively given manupalation of liver
Tolerating clears
Plan:
Advance diet
Oral Tramadol ordered, prn tylenol and toradol
OOB/Ambulate
Ok to d/c IVF
Dispo planning
Anticipate discharge later today vs tomorrow once tolerating diet and pain well managed
Subjective Data
-
Date of Service: November 04, 2024
Pt seen and examined at bedside with Dr. Winkler. Denies n/v. Tolerating clears thus far. Still quite sore, trying to avoid Dilaudid d/t lethargy with IV narcotics.
Objective Data
-
Intake and Output
11/03/24 11/04/24 11/05/24
06:59 06:59 06:59
Intake Total 1010 / 1010
Balance 1010 / 1010
Intake:
Oral fluids 960 / 960
IV fluids (Total) 50 / 50
normosol 50 / 50
Other:
Number of unmeasured voidings 1
Number of approximated MODERATE 4
amounts of urine
Vital Signs
Temp Pulse Resp BP Pulse Ox
98.3 F 70 16 135/88 99
11/04/24 07:09 11/04/24 07:09 11/04/24 07:09 11/04/24 07:09 11/04/24 07:09
Lab Results
11/04/24 08:00
11/04/24 08:00
Calcium 8.5 mg/dl (8.4-10.2) 11/04/24 08:00
Total Bilirubin 0.9 mg/dl (0.2-1.3) 11/04/24 08:00
Direct Bilirubin 0.5 mg/dl (0.0-0.4) H 11/04/24 08:00
AST 300 U/L (14-36) H 11/04/24 08:00
ALT 352 U/L (0-35) H 11/04/24 08:00
Alkaline Phosphatase 143 U/L (38-126) H 11/04/24 08:00
Total Protein 6.6 g/dl (6.3-8.2) 11/04/24 08:00
Albumin 3.9 g/dl (3.5-5.0) 11/04/24 08:00
Physical Exam
-
NAD
ABD soft, expected tenderness, ND
Incisions well approxiamated, intact glue
--- NOTE | 2024-11-04 10:52 | CM ---
Addendum entered by Leo Hanna 11/04/24 14:43:
Patient will d/c home today
No CM needs at this time
Original Note:
Patient seen bedside, initial assessment completed. Patient is a 39y F with PMH significant for cardiomyopathy, obesity and hyperthyroidism who presents to ED complaining of abdominal pain. Patient post op, POD #1 lap sirena with IOC.
Patient lives w/ her children in a 2sty home w/ basement. Independent in all areas. No DME, no therapy hx reported.
Address, point of contact and insurance verified
PCP: Marlen Rosenthal
Pharmacy: [facility]
Plan; Home, no needs when stable
[2024-11-04] MEDS: LR IV (11:08)
--- NOTE | 2024-11-04 12:05 | PTCARENOTE ---
pt c/o feeling like her heart was pounding. HR was 91-100, sounds regular BP 137/86, regular apical. denies SOB and CP. attending notified, EKG
[2024-11-04 12:57] LABS: Troponin I < 0.012 ng/ml
--- NOTE | 2024-11-04 14:23 | W.DCSUMMARY ---
Discharge Summary
Discharge Data
Date of Admission: 11/03/24
Date of Discharge: 11/04/24
Total time spent discharging patient (in min): 54
-
Pending Results: No
Hospital Course
Ms. Garcia is a 39-year-old female with a medical history of cardiomyopathy (recovered), hyperthyroidism, and obesity who presented with right upper quadrant abdominal pain. She had several episodes of nonbloody emesis. She remains
afebrile and normotensive. Her labs are generally unremarkable. Abdominal ultrasound shows a distended gallbladder with no stones, but suspicious for acute cholecystitis. HIDA scan indicates the same. She was admitted for further evaluation and
management.
She underwent laparoscopic cholecystectomy on 11/03 and tolerated the procedure well. She was able to tolerate a regular diet with no discomfort other than at her laparoscopic port sites. Antibiotics and IV fluids were discontinued. She was
medically stable for discharge to home. She will be given a prescription for tramadol to be taken as needed for abdominal pain. She will need close follow-up with general surgery in their office. She should also follow-up with her primary care
physician. Of note, she had abnormal liver function tests on the day after her procedure which is expected considering intraoperative manipulation of her liver. She should repeat blood work in approximately 1 week to be sure her liver function
tests are returning to normal.
General: No Apparent Distress, uncomfortable
HEENT: NormoCephalic, Moist mucous membranes, Atraumatic
Respiratory: Clear and Non Labored Respirations
Cardiac: S1/S2 and Regular Rhythm; No Rub or Gallop
GI: Soft, laparoscopic port scars CDI, Non Distended and Normal Bowel Sounds
Musculoskeletal: No Edema, no deformity
Skin: Warm and dry
: NO [place]ley
Neuro: Awake, Alert, Nonfocal/grossly intact
Psych: Calm and Intact Judgment/Insight
Discharge Plan
-
Patient Disposition: Home (Routine Discharge)
Discharge Diagnosis/Procedures: Acute cholecystitis status post laparoscopic cholecystectomy and intraoperative cholangiogram
Diet: As tolerated
Additional Diets: If you have loose stools after surgery, switch to a low fat diet
Activity: No strenuous activity
Additional Activity: Do not lift over 15lbs for the next 2-3 weeks
Driving Restrictions: Wait until comfortable twisting/off narcotics
Bathing Restrictions: OK to Shower
Wound Care: Allow the glue to flake off your incisions on its own over the next 2-3 weeks
Activity Restrictions/Additional Instructions:
Call your surgeon if you have fevers, nausea with vomiting or worsening abdominal pain
Referrals:
Marlen Rosenthal CRNP [Family Provider]
Davi Faustni MD [Active, Surgical] - in two to four weeks
Prescriptions:
New
tramadol 50 mg Tablet
50 mg PO Q6HPRN PRN (Reason: moderate pain) Qty: 12 0RF
Discharge Orders:
Discharge Patient (As Directed); Ordered 11/04/24
Ordered By: Tejas Mejia
Discharge Date and Time
Print Language: TAJIK
[2024-11-04 15:14] VITALS: BP 135/85
== END 2024-11-04 15:30 | disposition home or self-care (01) | DRG 419 ==
LOC: 4 WEST ACU 06:19
PROVIDERS: Physician Assistant; ADMITTING PHYSICIAN Hospitalist; ATTENDING PHYSICIAN Internal Medicine; CONSULT PHYSICIAN Surgery; EMERGENCY PHYSICIAN Emergency Medicine; FAMILY PHYSICIAN Nurse Practitioner Family
PROC: 0FT44ZZ Resection of Gallbladder, Percutaneous Endoscopic Approach (ICD-10-PCS; 2024-11-03)
PROC: BF001ZZ Plain Radiography of Bile Ducts using Low Osmolar Contrast (ICD-10-PCS; 2024-11-03)
DX: K81.0 Acute cholecystitis (principal); E05.90 Thyrotoxicosis, unspecified without thyrotoxic crisis or storm; E66.9 Obesity, unspecified; Z68.34 Body mass index [BMI] 34.0-34.9, adult; Z80.0 Family history of malignant neoplasm of digestive organs; I10 Essential (primary) hypertension
CPT/HCPCS: 74300; 76000; 76700; 78226; 80053; 81003; 81015; 82248; 83690; 84443; 84484; 84703; 85025; 85027; 87086; 88304; 93005; 96361; 96374; 96375; 99285; A4300; A9537; C1769

== ENCOUNTER 2025-01-17 19:48 | Inpatient (IN) | payer OTHER, SELFPAY ==
[2025-01-17] VITALS (8 sets, daily range): BP systolic 107–138; BP diastolic 74–100; BMI 34.4; BMI 33.4
[2025-01-17 15:37] LABS: Hematocrit 38.1 % (37.0-47.0); Hemoglobin 12.6 g/dL (12.0-16.0); Mean Corp Hgb Conc. 33.1 g/dL (33.0-37.0); Mean Corpuscular Volume 80.5 fL (81.0-99.0); Nucleated Red Blood Cells % 0 %; Platelet Count 210 10^3/uL (130-400); Red Cell Dist. Width 12.9 % (11.5-14.5)
[2025-01-17 16:00] LABS: ALT (SGPT) 103 U/L (0-35); AST (SGOT) 57 U/L (14-36); Albumin 4.1 g/dl (3.5-5.0); Alkaline Phosphatase 115 U/L (38-126); Blood Urea Nitrogen 8 mg/dl (7-17); Calcium 8.9 mg/dl (8.4-10.2); Carbon Dioxide 29 mmol/L (22-30); Chloride 104 mmol/L (98-107); Glucose 104 mg/dl (70-99); Potassium 4.2 mmol/L (3.5-5.1); Sodium 137 mmol/L (135-145); Total Protein 7.4 g/dl (6.3-8.2); eGFR > 60.00
[2025-01-17 16:05] LABS: Troponin I < 0.012 ng/ml
--- NOTE | 2025-01-17 16:36 | ED.GENMED ---
History of Present Illness
<Jayshree Lo PA-C - Last Filed: 01/17/25 21:16>
General
Chief Complaint: Chest Pain
Source: patient
Exam Limitations: none
Time Seen by Provider: 01/17/25 16:31
History of Present Illness
History of Present Illness:
39yoF with a history of SVT s/p ablation 2 months ago, cardiomyopathy in 2018, Grave's disease no longer on medication, hypertension, hyperlipidemia presenting for evaluation of elevated heart rates. Patient started to experience body
aches and chills 4 days ago. Her heart started to race 2 days ago. Her heart rates has been up to 120-140s on her home monitor. She is experiencing palpitations as well as chest pressure. She states it feels like something is sitting on her
chest. She is also having some nausea, lightheadedness, and blurred vision. Blurred vision started about a week ago after her Ozempic dose was increased. She follows with [facility]. She had an ablation about 2 months ago for SVT. She
developed a transient heart block during the procedure and was on a heart monitor for about 2 weeks and everything was normal. She had an echocardiogram about a month ago which showed an EF of 52%. Patient has been off of her Graves' medication
for about 18 months since she found out she was . She delivered her last child about 9 months ago. She is currently taking metoprolol 50 mg daily.
Past History
<Jayshree Lo PA-C - Last Filed: 01/17/25 21:16>
Past History
ED Past Medical History: HTN, Hyperthyroidism (Maintained on methimazole 5 mg once daily.), Other (Peripartum cardiomyopathy, CHF, EF has since normalized 2021. Follows with cardiology at [facility].) and Other (Seasonal allergies)
ED Past Surgical History: (X 1)
Social History
Tobacco: Non-smoker
Alcohol: Occasional
Drug: None
Personal: Other
Living: with family
Employment: Employed
Family History
Family History: Other (Noncontributory)
Phy Exam
<Jayshree Lo PA-C - Last Filed: 01/17/25 21:16>
General Physical Exam
General Presentation: well appearing and no apparent distress
General Skin: warm and dry
General Habitus: normal
General Mental: alert
ENT Exam
ENT Exam: normocephalic
Eye Exam
Eye Exam: PERRL, EOMI, conjunctiva normal and visual verma normal
Cardiovascular Exam
Cardiovascular Exam: no edema, no murmur and tachycardia
Pulmonary Exam
Pulmonary Exam: lungs clear, no respiratory distress, no rales, no crackles, no rhonchi and no wheezing
Neurological Exam
Neurological Exam: alert
[place] Coma Scale
Eye Opening: Spontaneous
Verbal Response: Oriented
Motor Response: Obeys Commands
GCS Total Score: 15
Skin Exam
Skin Exam: normal color and warm/dry
Psychiatric Exam
Psychiatric Exam: normal mood/affect
Scores
<Jayshree Lo PA-C - Last Filed: 01/17/25 21:16>
Heart Score for Chest Pain Patients
STEMI patient?: No
History: Slightly or Non-Suspicious
ECG: Normal
Age: </= 45 years
Risk Factors: No Risk Factors
Troponin: </= Normal Limit
Heart Score for Chest Pain Patients: 0
Heart Score Risk: 2.5% MACE over next 6 weeks
Course
<Jayshree Lo PA-C - Last Filed: 01/17/25 21:16>
Orders/Labs/Results
Orders:
Orders
01/17/25 15:06
EKG [Electrocardiogram (*1)] Urgent
Reason for Study: Chest Pain
01/17/25 15:07
EKG- Treatment ONCE
01/17/25 15:19
CMP [Comprehensive Metabolic Panel] Urgent
Complete Blood Count/With Diff Urgent
HCG, Serum Qualitative Screen Urgent
Comment: ADD ON
Magnesium Urgent
Comment: ADD ON
Troponin I Urgent
01/17/25 16:52
Cardiac Monitoring- Treatment ONCE
Visual Acuity- Treatment ONCE
01/17/25 16:53
Add On- LAB Urgent
Tests Added?: magnesium, qualitative HCG
01/17/25 16:59
COVID-19 Antigen Urgent
Source: Nasal Swab
D-Dimer Urgent
Free T4 Urgent
TSH Reflex To Free T4 Urgent
Influenza A+B Rapid Molecular Urgent
JENNIFER Source: Nasal Swab
Specimen Description:
01/17/25 17:06
0.9% Sodium Chloride 1000 ml [Nss] 1,000 ml IV BOLUS
01/17/25 17:22
CT Chest PE Study Urgent
Comment:
Reason For Exam: tachycardia, elevated D-dimer
01/17/25 18:11
Free T3 Urgent
01/17/25 18:13
Ketorolac [Toradol] 15 mg IV NOW STA
01/17/25 19:00
Metoprolol [Lopressor] 5 mg IV NOW STA
01/17/25 19:12
Methimazole [Tapazole] 20 mg PO NOW STA
01/17/25 19:31
Admit/Transfer Patient As Directed
Co-Sign Provider:
Level of Care: Inpatient admission
Assign to:: Telemetry
Physician / Group: yunior
Diagnosis: thyrotoxicosis
Reason for Telemetry: Other
Other Reason for Telemetry: thyrotoxicosis
Date to Stop Telemetry: 01/19/25
Time to Stop Telemetry: 11:00
Reason for Hospitalization: thyrotoxicosis
Expected length of stay greater than two midnights?: Yes
ELOS- Estimated Length of Stay in days: 2
I certify the patient meets the requirements for IP care: Yes
PRN Pain Medication Management As Directed
May give lesser potent ordered pain med per pt: Yes
preference::
Protocol:: Medication orders for pain may be administered in a
manner that supports deferring to patient preference
when the pt is:
- Requesting an ordered lesser potent pain medication.
Least to most potent pain medications are defined
as: acetaminophen < NSAID < tramadol < opioids
(morphine, oxycodone, hydromorphone).
- Requesting a lesser dose of the same medication IF
ORDERED.
- Requesting a less intrusive route of administration
if both routes are prescribed by the provider (PO <
IV).
01/17/25 19:32
Code Status As Directed
Resuscitation Status: Full Code
01/17/25 20:12
Acetaminophen [Tylenol] 650 mg PO Q4HPRN PRN
01/19/25 11:00
DC Protocol for Telemetry ONCE
Abnormal Lab Results
01/17/25 01/17/25 01/17/25
15:19 16:59 18:11
WBC 3.1 L 10^3/uL
(4.8-10.8)
MCV 80.5 L fL
(81.0-99.0)
MCH 26.6 L pg
(27.0-31.0)
Absolute Lymphs (auto) 0.8 L 10^3/uL
(1.2-3.4)
D-Dimer 1.56 H ug/mlFEU
(0.00-0.50)
Creatinine 0.5 L mg/dL
(0.6-1.0)
Glucose 104 H mg/dl
(70-99)
AST 57 H U/L
(14-36)
ALT 103 H U/L
(0-35)
TSH (Reflex) < 0.02 L uIU/ml
(0.47-4.68)
Free T4 6.50 H ng/dl
(0.78-2.19)
Free T3 > 22.80 H pg/ml
(2.77-5.27)
01/17/25 15:19
01/17/25 15:19
Vital Signs
Initial and Last Documented VS:
Initial Vital Signs
Temp Pulse Resp BP Pulse Ox
98.7 F 122 20 138/100 100
01/17/25 15:01 01/17/25 15:01 01/17/25 15:01 01/17/25 15:01 01/17/25 15:01
Last Documented Vital Signs
Temp Pulse Resp BP Pulse Ox
98.7 F 129 26 130/82 100
01/17/25 15:01 01/17/25 20:00 01/17/25 20:00 01/17/25 20:00 01/17/25 19:00
<Estrellita June MD - Last Filed: 01/17/25 20:17>
Orders/Labs/Results
Orders:
Orders
01/17/25 15:06
EKG [Electrocardiogram (*1)] Urgent
Reason for Study: Chest Pain
01/17/25 15:07
EKG- Treatment ONCE
01/17/25 15:19
CMP [Comprehensive Metabolic Panel] Urgent
Complete Blood Count/With Diff Urgent
HCG, Serum Qualitative Screen Urgent
Comment: ADD ON
Magnesium Urgent
Comment: ADD ON
Troponin I Urgent
01/17/25 16:52
Cardiac Monitoring- Treatment ONCE
Visual Acuity- Treatment ONCE
01/17/25 16:53
Add On- LAB Urgent
Tests Added?: magnesium, qualitative HCG
01/17/25 16:59
COVID-19 Antigen Urgent
Source: Nasal Swab
D-Dimer Urgent
Free T4 Urgent
TSH Reflex To Free T4 Urgent
Influenza A+B Rapid Molecular Urgent
JENNIFER Source: Nasal Swab
Specimen Description:
01/17/25 17:06
0.9% Sodium Chloride 1000 ml [Nss] 1,000 ml IV BOLUS
01/17/25 17:22
CT Chest PE Study Urgent
Comment:
Reason For Exam: tachycardia, elevated D-dimer
01/17/25 18:11
Free T3 Urgent
01/17/25 18:13
Ketorolac [Toradol] 15 mg IV NOW STA
01/17/25 19:00
Metoprolol [Lopressor] 5 mg IV NOW STA
01/17/25 19:12
Methimazole [Tapazole] 20 mg PO NOW STA
01/17/25 19:31
Admit/Transfer Patient As Directed
Co-Sign Provider:
Level of Care: Inpatient admission
Assign to:: Telemetry
Physician / Group: yunior
Diagnosis: thyrotoxicosis
Reason for Telemetry: Other
Other Reason for Telemetry: thyrotoxicosis
Date to Stop Telemetry: 01/19/25
Time to Stop Telemetry: 11:00
Reason for Hospitalization: thyrotoxicosis
Expected length of stay greater than two midnights?: Yes
ELOS- Estimated Length of Stay in days: 2
I certify the patient meets the requirements for IP care: Yes
PRN Pain Medication Management As Directed
May give lesser potent ordered pain med per pt: Yes
preference::
Protocol:: Medication orders for pain may be administered in a
manner that supports deferring to patient preference
when the pt is:
- Requesting an ordered lesser potent pain medication.
Least to most potent pain medications are defined
as: acetaminophen < NSAID < tramadol < opioids
(morphine, oxycodone, hydromorphone).
- Requesting a lesser dose of the same medication IF
ORDERED.
- Requesting a less intrusive route of administration
if both routes are prescribed by the provider (PO <
IV).
01/17/25 19:32
Code Status As Directed
Resuscitation Status: Full Code
01/17/25 20:12
Acetaminophen [Tylenol] 650 mg PO Q4HPRN PRN
01/19/25 11:00
DC Protocol for Telemetry ONCE
Abnormal Lab Results
01/17/25 01/17/25 01/17/25
15:19 16:59 18:11
WBC 3.1 L 10^3/uL
(4.8-10.8)
MCV 80.5 L fL
(81.0-99.0)
MCH 26.6 L pg
(27.0-31.0)
Absolute Lymphs (auto) 0.8 L 10^3/uL
(1.2-3.4)
D-Dimer 1.56 H ug/mlFEU
(0.00-0.50)
Creatinine 0.5 L mg/dL
(0.6-1.0)
Glucose 104 H mg/dl
(70-99)
AST 57 H U/L
(14-36)
ALT 103 H U/L
(0-35)
TSH (Reflex) < 0.02 L uIU/ml
(0.47-4.68)
Free T4 6.50 H ng/dl
(0.78-2.19)
Free T3 > 22.80 H pg/ml
(2.77-5.27)
01/17/25 15:19
01/17/25 15:19
Vital Signs
Initial and Last Documented VS:
Initial Vital Signs
Temp Pulse Resp BP Pulse Ox
98.7 F 122 20 138/100 100
01/17/25 15:01 01/17/25 15:01 01/17/25 15:01 01/17/25 15:01 01/17/25 15:01
Last Documented Vital Signs
Temp Pulse Resp BP Pulse Ox
98.7 F 129 26 130/82 100
01/17/25 15:01 01/17/25 20:00 01/17/25 20:00 01/17/25 20:00 01/17/25 19:00
<Jayshree Lo PA-C - Last Filed: 01/17/25 21:16>
MDM/Problems Addressed
Differential Diagnosis Includes:
39yoF here with palpitations, elevated HR, chest pressure, body aches, and blurred vision. Hx of SVT s/p ablation 2 months ago. Remote hx of Grave's disease no longer on medication. HR in the 130 range during exam and sinus tachycardia noted on
monitor. Differential diagnosis includes: thyrotoxicosis, PE, dehydration, infectious etiology
Initial ED plan: Workup initiated in triage. EKG shows sinus tachycardia and troponin undetectable. Will check D-dimer, TSH, HCG, and COVID/flu testing. IV fluid bolus.
<Jayshree Lo PA-C - Last Filed: 01/17/25 21:16>
*Pulse Oximetry
SaO2: 100
Oxygen Mode of Delivery: Room air
Patient hypoxic: no
*EKG
Interpreted by ED Provider?: Yes
EKG Intrepretation Date: 01/17/25
Heart Rate: 128
Rate: tachycardiac
Rhythm: sinus
[place]: normal axis
Interval: normal interval
QRS Pattern: normal QRS
Ischemia: no ischemia
*Critical Care Note
Total Time (30-74mins, 75-104mins- exclusive of procedures): Not Applicable
<Jayshree Lo PA-C - Last Filed: 01/17/25 21:16>
Update Note
Update Note:
TSH is <0.02. Both T3 and T4 markedly elevated. D-dimer elevated and CTA chest ordered which is negative for PE. Patient persistently tachycardic throughout ED stay with HR in the 120-140 range. Case discussed with endocrinology who recommends 20mg
methimazole TID. 5mg IV Lopressor ordered for rate control and patient admitted for further management.
ED Attending Note
<Jayshree Lo PA-C - Last Filed: 01/17/25 21:16>
-
Portions of this chart may have been created with voice recognition software.� Occasional wrong word or��sound alike� substitutions may have occurred due to the inherent limitations of voice recognition software.
<Estrellita June MD - Last Filed: 01/17/25 20:17>
ED Attending Note
Patient seen and examined by attending physician: Yes
I performed the substantive portion of visit, reviewed & personally made and approve the management plan that is documented in note by myself or DAJUAN.: Yes
ED Attending Note:
I have seen and evaluated the patient with a [id number] encounter. I have spoken to the [DAJUAN] and involved in the medical history, the physical exam, medical decision making.
Evaluation and management service: agree unless noted differently below.
Results interpretation: agree unless noted differently below.
Patient is a 39-year-old woman with history of SVT status post ablation, cardiomyopathy, Graves' disease no longer medication presenting to the emergency room elevated heart rate. Patient with past 2 days she is been having elevated
heart rate in the 120s to 140s. Has been having palpitations and occasional chest pressure. She is on Ozempic. She follows with [facility]. Patient states that she has been off her Graves' medications for about 1-1/2 years since she
was last . During my evaluation patient is resting comfortably. Her heart is tachycardic but regular rhythm, abdomen soft nondistended nontender. Blood work obtained does show low TSH and high free T4. Concern for thyroid storm.
Discussed with endocrinology who recommended metoprolol as well as starting methimazole. Will admit to the hospitalist.
Discharge Plan
Departure
Patient Disposition: Admit
Date of Disposition: 01/17/25
Time of Disposition: 19:08
Presentation/result/management discussed w/ accepting MD/DO: Hospitalist
Discharge Problem:
Hyperthyroidism, Sinus tachycardia
Interventions
Interventions:
*Risk Screen - Suicide Last Done: 01/17/25 15:01
*General Assessment Last Done: 01/17/25 16:22
*Neglect/Abuse Screening Last Done: 01/17/25 15:01
*ED- Fall Risk Assessment Last Done: 01/17/25 16:22
*ED COVID-19 Vaccine History Last Done: 01/17/25 15:01
*ED Influenza Vaccine History Last Done: 01/17/25 15:01
ED- Cardiac Assessment Last Done: 01/17/25 16:22
[2025-01-17 17:21] LABS: D-Dimer 1.56 ug/mlFEU (0.00-0.50)
[2025-01-17 17:23] LABS: COVID-19 Antigen Negative (Negative)
[2025-01-17 17:30] LABS: HCG, Serum Qualitative Screen Negative
[2025-01-17 17:39] LABS: Magnesium 1.7 mg/dl (1.6-2.3)
[2025-01-17] MEDS: NSS 1000 IV (17:59)
[2025-01-17 18:52] LABS: Free T3 > 22.80 pg/ml (2.77-5.27)
[2025-01-17] MEDS: TORADOL 15 MG IV (18:52)
[2025-01-17] MEDS: LOPRESSOR 5 MG IV (19:08)
--- NOTE | 2025-01-17 19:13 | HPS.HSE ---
Family Physician
-
Family Physician: NI Lazo
Chief Complaint
-
Chest discomfort
History of Present Illness
This is a 39-year-old female with past medical history significant for hypothyroidism with Graves' disease, cardiomyopathy, hypertension, hyperlipidemia, recent history of acalculous cholecystitis status post laparoscopic cholecystectomy
and who presents to the emergency department with persistently elevated heart rate.
She reports that her heart started racing about 2 days ago. She measured 120s to 140s on the monitor. She confirms palpitations and some chest pressure. She feels like there is something sitting on her chest. She reports some mild shortness of
breath. She reports nausea and lightheadedness and some blurry vision. She states she has been feeling weak and fatigued for about 4 days. She has mild nausea but no vomiting. She has intermittent diarrhea which she has had since
cholecystectomy. She reports decreased appetite and decreased p.o. intake. She also stated that she recently increased her dose of Ozempic. He stated that she had an ablation for SVT about 2 months ago and developed a transient heart block 20
procedural. She was monitored on her heart monitor for about 2 weeks and had no further events. An echocardiogram showed a preserved EF of 52%.
Patient reported that she has been off her previous medication for hypothyroid (methimazole) about 18 months since she found out she was . She is currently taking metoprolol succinate 50 mg p.o. daily. Olmesartan 20 mg daily.
In the emergency department patient was found to be tachycardic to the 130s. Blood pressure was 120/80 with a pulse rate of 130. She was afebrile she was satting 100% on room air. D-dimer was elevated. ECG showed sinus tachycardia at rate of [address] or T wave changes. Troponin was negative. She had a CT PE study which was negative for PE.
CBC was unremarked. Electrolytes BUN and creatinine were normal. TSH was undetectable. T4 was elevated and T3 was markedly elevated.
Medical History
Past Medical History
Past Medical History: Reports Other
Additional Past Medical History:
Cardiomyopathy (recovered)
Hyperthyroidism
Obesity
Past Surgical History: Reports Cholecystectomy and Other
Additional Past Surgical History:
x 2
Social History
Tobacco: Non-smoker
Alcohol: Occasional
Drug: None
Family History
Family History: Other (DM, Pancreatic Cancer)
Allergies / Home Medications
Allergies reflects when Allergies were last updated in [employer].
Home Medications with original date entered in [employer]
Allergy/Medication List:
Allergies
Allergy/AdvReac Type Severity Reaction Status Date / Time
shellfish derived Allergy Unknown Verified 11/03/24 01:56
Home Medications
No Meds [No Current Medications] 11/03/24
Review of Systems
-
Constitutional: Reports No Symptoms
EENT: Reports No Symptoms
Respiratory: Reports No Symptoms
Cardiac: Reports Chest Pain and Palpitations
Abdomen/GI: Reports Nausea
: Reports No Symptoms
Musculoskeletal: Reports Other (Generalized aches)
Skin: Reports No Symptoms
Neurological: Reports No Symptoms
Endocrine: Reports No Symptoms
Hematologic/Lymphatic: Reports No Symptoms
Psych: Reports No Symptoms
Physical Exam
Vital Signs
Vital Signs
Temp Pulse Resp BP Pulse Ox
98.7 F 130 20 120/88 100
01/17/25 15:01 01/17/25 19:08 01/17/25 18:48 01/17/25 19:08 01/17/25 18:48
Physical Exam
General: Well Developed, Well Nourished and No Apparent Distress
HEENT: NormoCephalic, Moist mucous membranes and Atraumatic
Respiratory: Clear
Cardiac: S1/S2 and Tachycardia; No Murmur or Rub
GI: Soft, Non Tender, Non Distended and Normal Bowel Sounds; No Organomegaly
Rectal: Deferred by Provider
Musculoskeletal: No Clubbing, No Cyanosis and No Edema
Skin: No Rash
Neuro: AO x 3 and Nonfocal/grossly intact
Laboratory Results
-
01/17/25 15:19
01/17/25 15:19
Laboratory Results
Total Bilirubin 0.6 mg/dl (0.2-1.3) 01/17/25 15:19
AST 57 U/L (14-36) H 01/17/25 15:19
ALT 103 U/L (0-35) H 01/17/25 15:19
Alkaline Phosphatase 115 U/L (38-126) 01/17/25 15:19
Troponin I < 0.012 ng/ml 01/17/25 15:19
Data Reviewed
-
CT Scan: Report Reviewed by me
Medical Tests (Nuc Med, Echo, EKG etc): Image Personally Visualized and interpreted
Lab Data: Labs Reviewed by me
Old Records: Reviewed
Impression/Plan
-
IMPRESSION:
39-year-old with prior history of hyperthyroidism secondary to Graves' disease, nonischemic cardiomyopathy, SVT status post ablation, history of cholecystitis status post coccygectomy in October presents to the emergency department with
tachycardia and palpitations and was found to be in thyrotoxicosis. Undetectable TSH, elevated T4 and T3. She stopped taking her Graves' medication several months ago in the setting of her . ECG shows sinus tachycardia. CT PE is
negative for PE. Labs unremarkable.
PLAN:
Thyrotoxicosis
- Admit to telemetry for now
-Continue metoprolol succinate, will increase dose to 75 mg daily for now, as needed metoprolol for heart rate greater than 120
� Discussed with endocrine, started methimazole 20 mg 3 times daily
� Antiemetics, pain control, gentle hydration
- Endocrine consultation
SVT status post ablation -patient had a transient heart block which was monitored for 12 days on continuous monitoring and continuous ambulatory monitoring. She has not had any events since.
� Continue beta-blockade
Hypertension
� holding olmesartan and continue at reduced dose pending BP monitoring on uptitration of beta blockade.
DVT prophylaxis�SCDs
CODE STATUS�full code
[2025-01-17] MEDS: TAPAZOLE 20 MG PO (20:05)
[2025-01-17] MEDS: TYLENOL 650 MG PO (20:30)
[2025-01-17] MEDS: LR 1000 IV (21:31)
[2025-01-17] MEDS: LOPRESSOR 25 MG PO (21:32)
[2025-01-18 02:53] VITALS: BP 113/72
[2025-01-18 07:25] VITALS: BP 102/71
[2025-01-18] MEDS: TAPAZOLE 20 MG PO ×3 (08:00→21:09)
[2025-01-18] MEDS: TOPROL XL 75 MG PO (08:01)
[2025-01-18 08:04] LABS: Hematocrit 32.5 % (37.0-47.0); Hemoglobin 10.8 g/dL (12.0-16.0); Mean Corp Hgb Conc. 33.2 g/dL (33.0-37.0); Mean Corpuscular Volume 80.0 fL (81.0-99.0); Platelet Count 169 10^3/uL (130-400); Red Cell Dist. Width 13.0 % (11.5-14.5)
[2025-01-18 08:17] LABS: Blood Urea Nitrogen 10 mg/dl (7-17); Calcium 8.7 mg/dl (8.4-10.2); Carbon Dioxide 28 mmol/L (22-30); Chloride 106 mmol/L (98-107); Estimated Creatinine Clearance > 125 ml/min; Glucose 94 mg/dl (70-99); Magnesium 1.7 mg/dl (1.6-2.3); Potassium 4.2 mmol/L (3.5-5.1); Sodium 138 mmol/L (135-145); eGFR > 60.00
--- NOTE | 2025-01-18 09:41 | W.PN.HOSP.TC ---
Today's Communication/Plan
-
see plan
Assessment / Plan
Assessment / Plan
39-year-old with prior history of hyperthyroidism secondary to Graves' disease, nonischemic cardiomyopathy, SVT status post ablation, history of cholecystitis status post coccygectomy in October presents to the emergency department with
tachycardia and palpitations and was found to be in thyrotoxicosis. Undetectable TSH, elevated T4 and T3. She stopped taking her Graves' medication several months ago in the setting of her . ECG shows sinus tachycardia. CT PE is
negative for PE. Labs unremarkable.
Pt seen and examined with DILLON Castro present at bedside for the entirety of interview and physical exam:
Gen: NAD, AAOx3.
Eyes: EOMI, PERRLA, no scleral icterus.
Neck: supple.
CV: tachy, reg rhythm, +S1/S2, no m/r/g.
Resp: CTAB, no rales, wheezes, or rhonchi.
Abd: +BS, soft, NT, ND
Skin: No rashes.
Neuro: CN 2-12 intact, non-focal.
Psych: Normal mood and affect.
Thyrotoxicosis:
-due to medical noncompliance
-cont Methimazole, Toprol XL
-Antiemetics, pain control, gentle hydration
-c/s Endocrine
Other problems:
SVT s/p ablation: patient had a transient heart block which was monitored for 12 days on continuous monitoring and continuous ambulatory monitoring. She has not had any events since. cont BB.
Essential HTN: cont BB
Obesity due to excess calories: Encourage weight loss
FULL/Lovenox
Anticipated Discharge: Within 24 hours
Subjective/Interval History
-
Date of Service: January 18, 2025
Currently denies CP/SOB.
Objective Data
-
Labs:
Laboratory Results
01/18/25
07:17
WBC 1.9 L*
Hgb 10.8 L
Hct 32.5 L
Plt Count 169
Sodium 138
Potassium 4.2
Chloride 106
Carbon Dioxide 28
BUN 10
Creatinine 0.5 L
Glucose 94
Calcium 8.7
Vital Signs:
Vital Signs
Temp Pulse Resp BP Pulse Ox
98.1 F 111 18 102/71 100
01/18/25 07:25 01/18/25 07:25 01/18/25 07:25 01/18/25 07:25 01/18/25 07:25
I&O
01/17/25 01/18/25 01/19/25
06:59 06:59 06:59
Intake Total 900 / 900
Balance 900 / 900
--- NOTE | 2025-01-18 10:35 | CM ---
I.A Completed By BRUNILDA Wright
Patient lives in a 2ST[facility] with 5 children, 1 EDUARDO, 14 STI. No DME, No VN/PT, No Inpatient Rehab.
PCP: Dr. Marlen Rosenthal
Pharmacy: [address]
Patient has transport home. PLAN: Anticipate Home No Needs.
[2025-01-18 11:23] VITALS: BP 127/85
[2025-01-18 15:23] VITALS: BP 131/86
[2025-01-18 17:09] LABS: Free T3 16.20 pg/ml (2.77-5.27)
[2025-01-18] MEDS: LOVENOX 40 MG SC (17:36)
[2025-01-18 19:00] VITALS: BP 143/91
[2025-01-18] MEDS: MELATONIN 5 MG PO (21:09)
[2025-01-18 23:12] VITALS: BP 109/71
[2025-01-19 02:59] VITALS: BP 104/67
[2025-01-19 06:35] LABS: ALT (SGPT) 70 U/L (0-35); AST (SGOT) 28 U/L (14-36); Albumin 3.5 g/dl (3.5-5.0); Alkaline Phosphatase 104 U/L (38-126); Blood Urea Nitrogen 13 mg/dl (7-17); Calcium 9.1 mg/dl (8.4-10.2); Carbon Dioxide 29 mmol/L (22-30); Chloride 105 mmol/L (98-107); Estimated Creatinine Clearance > 125 ml/min; Glucose 103 mg/dl (70-99); Potassium 4.1 mmol/L (3.5-5.1); Sodium 138 mmol/L (135-145); Total Protein 6.4 g/dl (6.3-8.2); eGFR > 60.00
[2025-01-19 06:51] LABS: Free T3 15.10 pg/ml (2.77-5.27)
[2025-01-19 07:25] VITALS: BP 123/77
[2025-01-19] MEDS: TAPAZOLE 20 MG PO (08:38)
[2025-01-19] MEDS: TOPROL XL 75 MG PO (08:38)
--- NOTE | 2025-01-19 09:12 | W.PN.HOSP.TC ---
Today's Communication/Plan
-
d/c
Assessment / Plan
Assessment / Plan
39-year-old with prior history of hyperthyroidism secondary to Graves' disease, nonischemic cardiomyopathy, SVT status post ablation, history of cholecystitis status post coccygectomy in October presents to the emergency department with
tachycardia and palpitations and was found to be in thyrotoxicosis. Undetectable TSH, elevated T4 and T3. She stopped taking her Graves' medication several months ago in the setting of her . ECG shows sinus tachycardia. CT PE is
negative for PE. Labs unremarkable.
Pt seen and examined with DILLON Eller present at bedside for the entirety of interview and physical exam:
Gen: NAD, AAOx3.
Eyes: EOMI, PERRLA, no scleral icterus.
Neck: supple.
CV: remains tachy, reg rhythm, +S1/S2, no m/r/g.
Resp: remains CTAB, no rales, wheezes, or rhonchi.
Abd: remains +BS, soft, NT, ND
Skin: No rashes.
Neuro: CN 2-12 intact, non-focal.
Psych: Normal mood and affect.
Thyrotoxicosis:
-due to medical noncompliance
-cont Methimazole, Toprol XL
-Antiemetics, pain control, gentle hydration
-as per Endocrine OK to decrease methimazole to 20mg daily and d/c home (discussed with Dr. Nicholson over [employer] 01/19/25 at 0914)
Other problems:
SVT s/p ablation: patient had a transient heart block which was monitored for 12 days on continuous monitoring and continuous ambulatory monitoring. She has not had any events since. cont BB.
Essential HTN: cont BB
Obesity due to excess calories: Encourage weight loss
FULL/Lovenox
Medically cleared for d/c.
Total time spent on d/c = 31 min. This included today's physical exam, progress note, review of laboratory and diagnostic data, preparation of discharge documents and prescriptions, and discussions about the pt's hospital course and discharge plan
with the patient and other medical billing representative involved in the patient's care.
Anticipated Discharge: Today
Subjective/Interval History
-
Date of Service: January 19, 2025
Pt c/o 'burning' in her nose and mouth.
Objective Data
-
Labs:
Laboratory Results
01/19/25
05:17
Sodium 138
Potassium 4.1
Chloride 105
Carbon Dioxide 29
BUN 13
Creatinine 0.5 L
Glucose 103 H
Calcium 9.1
Total Bilirubin 0.4
AST 28
ALT 70 H
Alkaline Phosphatase 104
Vital Signs:
Vital Signs
Temp Pulse Resp BP Pulse Ox
98.0 F 124 16 123/77 99
01/19/25 07:25 01/19/25 07:25 01/19/25 07:25 01/19/25 07:25 01/19/25 07:25
I&O
01/18/25 01/19/25 01/20/25
06:59 06:59 06:59
Intake Total 900 / 900 1320 / 1320
Balance 900 / 900 1320 / 1320
--- NOTE | 2025-01-19 13:24 | W.DCSUMMARY ---
Discharge Summary
Discharge Data
Date of Admission: 01/17/25
Date of Discharge: 01/19/25
-
Pending Results: No
Hospital Course
Primary diagnoses:
Thyrotoxicosis
Secondary diagnoses:
Essential hypertension
Supraventricular tachycardia s/p ablation
Obesity due to excess calories
Consultants:
Endocrinology
Imaging:
CTA chest: No CTA evidence for an acute pulmonary thromboembolism.
Hospital course: 39-year-old female who presented with a chief complaint of chest discomfort as outlined in the H&P done on admission. Patient had a significant past medical history of graves disease. She had not been on her methimazole since
. She was tachycardic on admission. CT angiogram of the chest above. She was placed on methimazole and Toprol-XL. Her free T4 on admission was 6.5. And improved to 4.3 over the course of 1-1/2 days. She was seen in consultation by
endocrinology. She was cleared for discharge on methimazole 20 mg daily. She will have follow-up with endocrinology next week.
Discharge Plan
-
Patient Disposition: Home (Routine Discharge)
Discharge Diagnosis/Procedures: Thyrotoxicosis
Condition: Good
Diet: Regular
Activity: No strenuous activity
Driving Restrictions: As prior to admission
Referrals:
Natasha Nicholson MD [Consulting Staff, Endocrinology] - in less than 1 week
Marlen Rosenthal CRNP [Family Provider] - in less than 1 week
Prescriptions:
New
metoprolol succinate [Toprol XL] 25 mg tablet extended release 24 hr
75 mg PO DAILY Qty: 90 0RF
methimazole 10 mg tablet
20 mg PO DAILY Qty: 60 0RF
Continued
Ozempic 0.25 mg or 0.5 mg (2 mg/3 mL) Pen Injector
0.5 mg SC QWEEK
Vitamin D3
125 mcg dfe PO HS
Rx Instructions:
vitamin D3 5000 IU
Discontinued
metoprolol tartrate [Lopressor] 50 mg Tablet
50 mg PO HS
olmesartan 20 mg Tablet
20 mg PO HS
Discharge Orders:
Discharge Patient (As Directed); Ordered 01/19/25
Ordered By: Ubaldo Thapa
Discharge Date and Time
Discharge Date/Time: 01/19/25 10:04
Print Language: TRINIDADIAN
[2025-01-20 14:22] LABS: Thyroglobulin Antibodies <1.5 IU/mL (0.0-4.0)
[2025-01-21 02:25] LABS: Thyroid Stim. Immunoglobulin 3.06 IU/L (<=0.54)
== END 2025-01-19 10:04 | disposition home or self-care (01) | DRG 644 ==
LOC: 4 WEST ACU 19:48
PROVIDERS: Internal Medicine Endocrinology, Diabetes & Metabolism; Physician Assistant; ADMITTING PHYSICIAN Internal Medicine; ATTENDING PHYSICIAN Internal Medicine; EMERGENCY PHYSICIAN Student in an Organized Health Care Education/Training Program; FAMILY PHYSICIAN Nurse Practitioner Family
DX: E05.90 Thyrotoxicosis, unspecified without thyrotoxic crisis or storm (principal); I47.10 Supraventricular tachycardia, unspecified; Z11.52 Encounter for screening for COVID-19; I11.0 Hypertensive heart disease with heart failure; Z91.199 Patient's noncompliance with other medical treatment and regimen due to unspecified reason; E66.09 Other obesity due to excess calories; Z68.33 Body mass index [BMI] 33.0-33.9, adult; Z79.899 Other long term (current) drug therapy
CPT/HCPCS: 71275; 80048; 80053; 83735; 84439; 84443; 84445; 84481; 84484; 84703; 85025; 85027; 85379; 86376; 86800; 87502; 87811; 93005; 96361; 96374; 96375; 99285; Q9967